=== PATIENT | female | born 1960 | race African-American/Black ===

== ENCOUNTER 2016-06-09 08:33 | Inpatient (IN) | payer OTHER ==
[2016-06-09] MEDS ORDERED: MAXIPIME 1 GM/D5W 50 ML IV SCH (09:00)
[2016-06-09] MEDS ORDERED: NS 500 ML ONE (10:09)
[2016-06-09 10:34] LABS: HEMATOCRIT 36.1 % (37.0-47.0); HEMOGLOBIN 10.8 g/dL (12.0-16.0); MCH 25.4 PG (27-31); MCHC 29.9 g/dL (33-37); MCV 84.7 FL (81-99); MPV 9.3 FL (7.4-10.4); RBC 4.26 XMIL (4.2-5.4)
[2016-06-09 10:49] LABS: INR 1.08 (0.86-1.15); PROTIME 14.3 Seconds (12.1-15.5)
[2016-06-09 10:54] LABS: CALCIUM 8.8 mg/dL (8.8-10.2); POTASSIUM 4.1 mmol/L (3.5-5.1)
[2016-06-09] MEDS: SANTYL OINT TOP SCH (11:02)
--- NOTE | 2016-06-09 12:49 | Diag Imaging Result Document ---
PROCEDURE NAME: CHEST-PORTABLE - 06/09/2016 PORTABLE AP CHEST: COMPARISON: 05/23/2015. FINDINGS: There is a left-sided PICC line on the current exam. The tip overlies the mid superior vena cava. Poor inspiratory effort. The heart is borderline mildly prominent. This is similar to the prior exam. Mild increased interstitial markings similar to the prior study. No consolidation. No pleural effusions identified. IMPRESSION: Placement of a left-sided PICC line with the tip overlying the mid superior vena cava.
[2016-06-09] MEDS: MAXIPIME 1 GM in NS 50 ML IV SCH ×2 (13:44→21:44)
[2016-06-09] MEDS ORDERED: ZOFRAN IV PRN (16:39)
[2016-06-09] MEDS ORDERED: ZYRTEC PO PRN (16:42)
[2016-06-09] MEDS ORDERED: IBUPROFEN PO PRN (16:42)
[2016-06-09] MEDS ORDERED: DIPHENHYDRAMINE CIT PO PRN (16:42)
[2016-06-09] MEDS ORDERED: MOTRIN PO PRN (17:19)
[2016-06-09] MEDS ORDERED: BENADRYL PO PRN (17:20)
[2016-06-09] MEDS: NEURONTIN PO SCH (17:40)
[2016-06-09] MEDS: GLUCOTROL PO SCH (17:40)
[2016-06-09] MEDS: FISH OIL CONCENTRATE PO SCH (17:40)
[2016-06-09] MEDS: FERROUS SULFATE PO SCH (17:40)
[2016-06-09] MEDS: DITROPAN PO SCH (21:46)
[2016-06-09] MEDS: ZOCOR PO SCH (21:47)
[2016-06-09] MEDS: LANTUS INSULIN (PARKWAY) SUBQ SCH (21:47)
[2016-06-10] MEDS: MAXIPIME 1 GM in NS 50 ML IV SCH ×3 (05:51→21:15)
[2016-06-10 06:23] LABS: HEMATOCRIT 31.8 % (37.0-47.0); HEMOGLOBIN 9.4 g/dL (12.0-16.0); MCHC 29.6 g/dL (33-37); MCV 84.6 FL (81-99); MPV 9.5 FL (7.4-10.4); RBC 3.76 XMIL (4.2-5.4)
[2016-06-10 06:43] LABS: CALCIUM 8.5 mg/dL (8.8-10.2); POTASSIUM 4.1 mmol/L (3.5-5.1)
[2016-06-10] MEDS: FISH OIL CONCENTRATE PO SCH ×3 (09:56→17:57)
[2016-06-10] MEDS: FERROUS SULFATE PO SCH ×3 (09:56→17:57)
[2016-06-10] MEDS: VITAMIN B-12 PO SCH (09:56)
[2016-06-10] MEDS: HYDROCHLOROTHIAZIDE PO SCH (09:56)
[2016-06-10] MEDS: GLUCOTROL PO SCH ×2 (09:56→17:57)
[2016-06-10] MEDS: DITROPAN PO SCH ×2 (09:57→21:15)
[2016-06-10] MEDS: ASPIRIN EC PO SCH (09:57)
[2016-06-10] MEDS: TRADJENTA PO SCH (09:57)
[2016-06-10] MEDS: NEURONTIN PO SCH ×3 (09:57→17:57)
--- NOTE | 2016-06-10 12:57 | HISTORY AND PHYSICAL ---
CHIEF COMPLAINT: Nonhealing wound, left calf. HISTORY OF PRESENT ILLNESS: This is a morbidly obese, 55-year-old female with a history of diabetes mellitus, hypertension, peripheral neuropathy, who presented as a direct admit from the wound center for an ulcer to her left calf with failed outpatient treatment. She had previously been following with Dr. Christine in the wound center. As she has not responded to antibiotics, she is being admitted for a PICC line placement and antibiotic therapy and further treatment. PAST MEDICAL HISTORY: Hypertension, diabetes mellitus, morbid obesity, chronic anemia. PAST SURGICAL HISTORY: Multiple surgeries to the left leg, left calf, . SOCIAL HISTORY: She denies alcohol, tobacco, or illicit drug use. ALLERGIES: Flagyl which causes itching. HOME MEDICATIONS: A list will be obtained. REVIEW OF SYSTEMS: A 14 point review of systems is discussed with patient with pertinent positives being persistent wound to left calf. She denies chest pain, palpitations, dizziness, syncope, shortness of breath, dyspnea on exertion, nausea, vomiting, diarrhea, constipation, black or bloody vomitus, black or bloody stools, hematuria, dysuria, frequency, urgency, fever, chills. PHYSICAL EXAMINATION: GENERAL: This is a 55-year-old female who is sitting in the bed, in no distress. VITAL SIGNS: Blood pressure is 143/90 with a heart rate of 81, respirations are 18, temperature is 98.5 degrees oral, with room air saturation of 100%. CARDIOVASCULAR: Regular rate and rhythm. S1 and S2 are appreciated. PULMONARY: Breath sounds are clear. Diminished due to body habitus with no increased work of breathing noted. GASTROINTESTINAL: Abdomen is large, soft, nontender, nondistended with bowel sounds in all 4 quadrants. EXTREMITIES: No clubbing or cyanosis. She has bilateral pedal edema. Pulses are palpable x4. Calves are nontender. NEUROLOGIC: She is alert and oriented x3. Cranial nerves 2 through 12 grossly intact. SKIN: Warm and dry with a wound noted to the left calf that is dressed, with dressing dry and intact. ASSESSMENT AND PLAN: 1. Left calf wound, failed outpatient treatment. 2. Diabetes mellitus. 3. Hypertension. 4. Chronic kidney disease. 5. Peripheral neuropathy. 6. Deep vein thrombosis prophylaxis. 7. Gastrointestinal prophylaxis. PLAN: She will be admitted to the hospital. A PICC line will be placed. She will be started on Maxipime 1 g every 8 hours. We will consult wound center for management. Dr. christine will be consulted. We will identify and continue her home medications as appropriate. For DVT prophylaxis we will use low-dose Lovenox and for GI prophylaxis, Prilosec. Further treatments pending hospital course. Dictated by MASON Ortiz for Isma Wheeler MD
[2016-06-10] MEDS: SANTYL OINT TOP SCH (15:11)
--- NOTE | 2016-06-10 16:27 | PROGRESS NOTE ---
DATE: 06/10/2016 SUBJECTIVE: The patient has no specific complaints. She denies any pain to her left calf. No fever or chills. OBJECTIVE: Vital Signs: Blood pressure is 148/65, with a heart rate of 80, respirations are 18, temperature is 97.4 degrees oral, with room air saturations of 100%. Cardiovascular: Regular rate and rhythm. S1 and S2 appreciated. Pulmonary: Breath sounds are clear although diminished due to body habitus. Chest rises and falls symmetrically with respiration. No increased work of breathing noted. Gastrointestinal: Abdomen is large, soft, nontender, nondistended, with bowel sounds in all 4 quadrants. Extremities: No clubbing or cyanosis. She does have some trace pedal edema. Dressing is dry and intact to her left calf. Pulses are palpable x4. Calves are nontender. DIAGNOSTICS: WBC is 6.4, with hemoglobin 9.4, hematocrit 31.8, and platelets of 254,000. Sodium is 141, potassium 4.1, BUN 19, creatinine 1.3, with glucose of 167. PROBLEM LIST: 1. Left calf wound, failed outpatient treatment. 2. Diabetes mellitus. 3. Hypertension. 4. Chronic kidney disease. 5. Peripheral neuropathy. 6. Deep venous thrombosis prophylaxis. 7. Gastrointestinal prophylaxis. 8. Dressing changes. Continue per Wound Care. 9. We will continue with IV Maxipime. Today is day #2, with Lovenox for deep venous thrombosis prophylaxis, and Prilosec for gastrointestinal prophylaxis. Dictated by MASON Ortiz for Isma Wheeler MD
[2016-06-10] MEDS: ZOCOR PO SCH (21:15)
[2016-06-10] MEDS: LANTUS INSULIN (PARKWAY) SUBQ SCH (21:15)
[2016-06-11] MEDS: MAXIPIME 1 GM in NS 50 ML IV SCH ×3 (06:04→21:22)
[2016-06-11] MEDS: PRILOSEC PO SCH (06:36)
--- NOTE | 2016-06-11 07:53 | PROGRESS NOTE ---
DATE: 06/11/2016 SUBJECTIVE: The patient states that she is feeling better today. She does have less edema in her left calf wound. She denies any pain, any fever or chills. OBJECTIVE: Vital Signs: Blood pressure is 115/53. Heart rate of 79, respirations are 18, temperature is 98.1 degrees oral with a room air saturation of 100%. Cardiovascular: Regular rate and rhythm. S1 and S2 appreciated. Pulmonary: Breath sounds are clear, although diminished due to body habitus. Chest rises and falls symmetrically with respiration. No increased work of breathing noted. Gastrointestinal: Abdomen is soft, nontender, nondistended with bowel sounds in all 4 quadrants. Extremities: No clubbing or cyanosis. She does have decreased lower extremity edema. Dressing is dry and intact to her left calf. Pulses are palpable x4. She states her calves are nontender. Neurologic: She is alert and oriented x3. DIAGNOSTICS: She has no new labs today. PROBLEM LIST: 1. Left calf wound failed outpatient treatment. 2. Diabetes mellitus. 3. Hypertension. 4. Chronic kidney disease. 5. Peripheral neuropathy. 6. Deep vein thrombosis prophylaxis. 7. Gastrointestinal prophylaxis. PLAN: We will continue with the current regimen, continue dressing changes as before. We will set up home IV antibiotics of Maxipime 1 g every 8 hours for 2 weeks. The plan is to discharge in the morning. Dictated by MASON Ortiz for Tom Teague MD pt examined, agree with above, plan for dc in am [facility]
[2016-06-11] MEDS: NEURONTIN PO SCH ×3 (09:34→17:10)
[2016-06-11] MEDS: VITAMIN B-12 PO SCH (09:34)
[2016-06-11] MEDS: ASPIRIN EC PO SCH (09:34)
[2016-06-11] MEDS: GLUCOTROL PO SCH ×2 (09:34→17:09)
[2016-06-11] MEDS: FISH OIL CONCENTRATE PO SCH ×3 (09:34→17:10)
[2016-06-11] MEDS: DITROPAN PO SCH ×2 (09:35→21:22)
[2016-06-11] MEDS: TRADJENTA PO SCH (09:35)
[2016-06-11] MEDS: FERROUS SULFATE PO SCH ×3 (09:35→17:10)
[2016-06-11] MEDS: HYDROCHLOROTHIAZIDE PO SCH (09:35)
[2016-06-11] MEDS: LOVENOX SUBQ SCH (09:37)
[2016-06-11] MEDS: SANTYL OINT TOP SCH (09:37)
--- NOTE | 2016-06-11 10:01 | CONSULTATION ---
DATE OF CONSULTATION: 06/11/2016 CHIEF COMPLAINT: Chronic ulcer of left medial calf. HISTORY OF PRESENT ILLNESS: This is a 55-year-old, obese, black female known to me from the Wound Center. She has had a chronic wound of the left calf for years. She has had former attempts at excision of the lymphedematous swollen leg. She has almost completely healed in the past. She is poorly compliant as an outpatient. She is admitted now because of the wound culture being refractory to all p.o. medications. We felt also that she would do better if we hospitalized her and kept her leg up to reduce swelling. PAST MEDICAL HISTORY: Her other medical problems include noninsulin-dependent diabetes, morbid obesity, chronic anemia, hypertension. PAST SURGICAL HISTORY: Includes a . SOCIAL HISTORY: She denies alcohol, tobacco usage. ALLERGIES: She reports an allergy to Flagyl. MEDICATIONS: She has been on numerous p.o. antibiotics at home. REVIEW OF SYSTEMS: As noted above. PHYSICAL EXAMINATION: Vital signs: Temp 98.1 degrees, heart rate 79, respiratory rate 18, blood pressure 115/53. Lungs: Bilateral breath sounds. Heart: Regular rate and rhythm. Abdomen: Soft. Extremities: She has a very swollen and edematous left calf with the ulceration medial posteriorly. It has some discoloration to the exudate. There are pedal pulses. Neurologic: She is awake and alert. LABS: White count on admission 8,900, hemoglobin 10.8. BUN 19, creatinine 1.3. ASSESSMENT: 1. Chronic wound. 2. Medical noncompliance. PLAN: Admission for IV antibiotic therapy. Her recent cultures grew out Enterobacter cloacae sensitive to cefepime. Because of her failure to be compliant as an outpatient and failure of the wound to improve as an outpatient is why admission was recommended and IV antibiotic therapy.
[2016-06-11] MEDS ORDERED: LANTUS INSULIN (PARKWAY) SUBQ SCH (19:25)
[2016-06-11] MEDS: ZOCOR PO SCH (21:22)
[2016-06-12] MEDS: PRILOSEC PO SCH ×2 (05:58→06:18)
[2016-06-12] MEDS: MAXIPIME 1 GM in NS 50 ML IV SCH ×2 (05:58→13:06)
[2016-06-12 07:18] VITALS: BP 142/76
[2016-06-12] MEDS: GLUCOTROL PO SCH (08:51)
[2016-06-12] MEDS: ASPIRIN EC PO SCH (08:52)
[2016-06-12] MEDS: VITAMIN B-12 PO SCH (08:52)
[2016-06-12] MEDS: TRADJENTA PO SCH (08:52)
[2016-06-12] MEDS: DITROPAN PO SCH (08:52)
[2016-06-12] MEDS: NEURONTIN PO SCH ×2 (08:52→12:25)
[2016-06-12] MEDS: SANTYL OINT TOP SCH (08:53)
[2016-06-12] MEDS: HYDROCHLOROTHIAZIDE PO SCH (08:53)
[2016-06-12] MEDS: LOVENOX SUBQ SCH (08:53)
[2016-06-12] MEDS: FISH OIL CONCENTRATE PO SCH ×2 (08:53→12:25)
[2016-06-12] MEDS: FERROUS SULFATE PO SCH ×2 (08:57→12:29)
--- NOTE | 2016-06-12 15:35 | DISCHARGE SUMMARY ---
ADMISSION DATE: 06/09/2016 DISCHARGE DATE: 06/12/2016 DISCHARGE DIAGNOSES: 1. Chronic wound of the left lower extremity, failing outpatient therapy. 2. Diabetes. 3. Hypertension. Controlled. 4. Chronic renal failure. 5. Peripheral neuropathy. ADMISSION DIAGNOSES: 1. Left calf wound. 2. Diabetes mellitus. 3. Hypertension, 4. Chronic kidney disease. HOSPITAL COURSE: Patient admitted per Dr. Wheeler, PICC line was placed. She was started on cefepime. Dr. Carter was consulted. I do not think Dr. Correa was consulted, but Dr. Carter will be following her. He recommended IV antibiotics. She had recent cultures that grew out Enterobacter cloacae sensitive to cefepime. She will be discharged on IV antibiotics presumably for another week to at least 10 days, I would think. She has had some episodes with periodic hypoglycemia. Blood sugars have been stable. We decreased her Lantus to 20 units and she seems to be overall controlled. DISCHARGE MEDICATIONS: Ferrous sulfate 325 p.o. t.i.d., omega 3 fatty acids 1 t.i.d., simvastatin 40 daily, vitamin B12 1 g daily, aspirin 81 daily. Lantus, I am going to adjust down to 30 units at bedtime. Zyrtec 10 daily, hydrochlorothiazide 25 daily, gabapentin 600 t.i.d., glipizide 10 b.i.d., Ditropan 5 b.i.d., Tradjenta 5 daily and then the cefepime will be 1 g q.12 for another 10 days. DISCHARGE CONDITION: Stable. FOLLOWUP: She will follow up with Dr. Carter next week to examine her wound. TIME SPENT: A 32 minute discharge.
== END 2016-06-12 14:08 | disposition home health service (06) | DRG 638 ==
LOC: P.MEDSURG 08:33
PROVIDERS: ADMIT Internal Medicine; ATTEND Internal Medicine
PROC: 02HV33Z Insertion of Infusion Device into Superior Vena Cava, Percutaneous Approach (ICD-10-PCS; principal; 2016-06-09)
DX: E11.622 Type 2 diabetes mellitus with other skin ulcer (principal); L97.229 Non-pressure chronic ulcer of left calf with unspecified severity; E11.22 Type 2 diabetes mellitus with diabetic chronic kidney disease; E11.40 Type 2 diabetes mellitus with diabetic neuropathy, unspecified; Z68.44 Body mass index [BMI] 60.0-69.9, adult; E66.01 Morbid (severe) obesity due to excess calories; D64.9 Anemia, unspecified; I12.9 Hypertensive chronic kidney disease with stage 1 through stage 4 chronic kidney disease, or unspecified chronic kidney disease; N18.9 Chronic kidney disease, unspecified; Z91.19 Patient's noncompliance with other medical treatment and regimen; Z79.4 Long term (current) use of insulin; Z79.82 Long term (current) use of aspirin; Z79.899 Other long term (current) drug therapy
CPT/HCPCS: 36569; 71010; 80048; 82948; 85027; 85610; J0692; J1650; J1815; J2405; J7050

== ENCOUNTER 2018-07-07 13:02 | Inpatient (IN) ==
[2018-07-07] MEDS ORDERED: ZOSYN 3.375 GM in NS 50 ML IV SCH (16:00)
[2018-07-07] MEDS: NEURONTIN PO SCH (17:40)
[2018-07-07] MEDS: FERROUS SULFATE PO SCH (17:40)
[2018-07-07] MEDS: GLUCOTROL PO SCH (17:40)
[2018-07-07] MEDS: FISH OIL CONCENTRATE PO SCH (17:40)
--- NOTE | 2018-07-07 18:01 | HISTORY AND PHYSICAL ---
CHIEF COMPLAINT: Infected left leg ulcer with lymphedema. HISTORY: This is a 58-year-old obese female with apparently congenital lymphedema in the left leg. She has had a couple attempts at volume reduction of her left leg tissue, but has not been able to heal the wound completely. She is followed in the [facility] and intermittently has infections. She has another one that is growing a gram-negative roxi. We treated her as an outpatient with Levaquin but this has not responded adequately, so she is admitted for IV antibiotic therapy. MEDICAL HISTORY: Other medical problems include insulin-dependent diabetes, hypertension, hyperlipidemia, sleep apnea, anemia. SURGICAL HISTORY: Previous surgery includes a and then the soft tissue resection in the left leg done in the past. FAMILY HISTORY: Noncontributory. SOCIAL HISTORY: She is a nonsmoker. She lives at home. Denies substance abuse. REVIEW OF SYSTEMS: Negative in every sub system. PHYSICAL EXAMINATION: VITAL SIGNS: She is afebrile. Heart rate 90, blood pressure is 150/90. NECK: No cervical adenopathy. LUNGS: Bilateral breath sounds. HEART: Regular rate and rhythm. EXTREMITIES: She is massively obese. She has a very large left leg consistent with chronic lymphedema. The ulcerations are on the medial aspect. There is some odor. Is weeping fairly significantly. PLAN: IV Zosyn to which she has responded before. We will also watch her sugars in the hospital. cc: MD Connie Sanchez MD
[2018-07-07] MEDS ORDERED: TYLENOL PO PRN (18:21)
[2018-07-07] MEDS ORDERED: ZOFRAN IV PRN (18:21)
--- NOTE | 2018-07-07 18:43 | Diag Imaging Result Doc PS360 ---
EXAM: CHEST-PORTABLE 07/07/2018 HISTORY: dyspnea TECHNIQUE: AP portable at 1831 COMMENT: There is cardiomegaly. There is increased opacity over the lower lung palmer compared to 03/13/2017. The heart size appears larger. IMPRESSION: Worsening cardiomegaly and pulmonary edema. Electronically signed by Javier Munoz 07/07/2018 6:40 PM
[2018-07-07 18:56] LABS: BASO# 0.04 X1000 (0.0-0.2); BASO% 0.6 % (0.0-0.8); EOS# 0.15 X1000 (0.0-0.7); EOS% 2.1 % (0.0-10.0); HEMATOCRIT 33.7 % (37.0-47.0); HEMOGLOBIN 10.3 g/dL (12.0-16.0); IMM GRAN# 0.02 X1000 (0.0-0.04); IMM GRAN% 0.3 % (0.0-0.5); LYMPH# 1.45 X1000 (1.2-3.4); LYMPH% 20.4 % (20.5-51.1); MCH 25.2 PG (27-31); MCHC 30.6 g/dL (33-37); MCV 82.4 FL (81-99); MONO# 0.55 X1000 (0.11-0.59); MONO% 7.7 % (1.7-9.3); MPV 9.6 FL (7.4-10.4); NEUT# 4.91 X1000 (1.4-6.5); NEUT% 68.9 % (42.2-75.2); PLT 211 X1000 (130-400); RBC 4.09 XMIL (4.2-5.4); RDW 16.9 % (11.5-14.5); RETIC% 1.73 % (0.8-2.1); RETIC-HE 25.4 PG (28.2-36.6); WBC 7.12 X1000 (4.8-10.8)
[2018-07-07 19:37] LABS: IRON SATURATION 12 %; TIBC 215 ug/dL; TOTAL IRON 26 ug/dL (49-151); UNBOUND IRON 189 ug/dL (112-346)
[2018-07-07 19:51] LABS: HEMOGLOBIN A1C 6.5 % (4.8-6.0)
[2018-07-07 20:05] LABS: URINE SOURCE CATH
[2018-07-07 20:19] LABS: BILIRUBIN URINE NEGATIVE (NEGATIVE); BLOOD URINE TRACE (NEGATIVE); COLOR YELLOW; GLUCOSE URINE NEGATIVE (NEGATIVE); KETONE URINE NEGATIVE (NEGATIVE); LEUKOCYTES URINE NEGATIVE (NEGATIVE); NITRITE URINE NEGATIVE (NEGATIVE); PH URINE 6.5; PROTEIN URINE 200 mg/dL (NEGATIVE); SP GRAVITY URINE 1.019; TURBIDITY URINE CLEAR (CLEAR); UROBILINOGEN URINE NORMAL (NORMAL)
[2018-07-07 20:20] LABS: FERRITIN 242 ng/mL (13-150)
[2018-07-07 20:22] LABS: UR EPITHELIAL CELLS <10 /HPF (<10); URINE BACTERIA NEGATIVE /HPF; URINE RBC <10 /HPF (<10); URINE WBC <10 /HPF (<10)
--- NOTE | 2018-07-07 20:32 | CONSULTATION ---
DATE OF CONSULTATION: 07/07/2018 REQUESTING PHYSICIAN: Dr. Carter. REASON FOR CONSULTATION: Management of diabetes mellitus type 2. HISTORY OF PRESENT ILLNESS: Ms. Montanez is a 58-year-old female with a history of morbid obesity, diabetes mellitus type 2 on insulin, anemia of chronic disease and a nonhealing left leg ulceration who was directly admitted due to an infection involving the left leg and ulceration on the left leg. The patient states that she has had a chronic ulceration on her left calf that has not been healing well for the last two years. The patient reports that the home health nurse came out to her home and noticed that the wound looked worse. There was a foul odor with purulent discharge soaking the sheets. The patient reports that she had her wound VAC removed last week and was given a seven-day course of antibiotic. However, there was no improvement in the appearance of her leg. The patient denies having any fever, chills or change in appetite. The patient states that she currently lives at home with her son and has home health come out to her home. The patient reports that she has been diabetic since 1988. She states that her blood sugars range anywhere from 98 to the 120s. The patient is on Lantus 30 units subcutaneous at bedtime. Her most recent hemoglobin A1c is 6.5. The patient denies having any chest pain, headache, dizziness or recent syncopal episodes. The patient also has severe chronic lower extremity lymphedema. PAST MEDICAL HISTORY: 1. Diabetes mellitus type 2. 2. Morbid obesity. 3. Anemia of chronic disease. 4. Hypertension. 5. Chronic nonhealing ulceration to the left calf. 6. Hyperlipidemia. 7. Urinary incontinence. 8. Diabetic neuropathy. 9. Chronic leg lymphedema 10. Chronic kidney disease PAST SURGICAL HISTORY: 1. Multiple surgeries to the left leg. 2. . SOCIAL HISTORY: The patient lives at home with her son. She denies any tobacco, alcohol or illicit drug use. ALLERGIES: Flagyl, which causes hives and itching. HOME MEDICATIONS: The medication reconciliation is pending. REVIEW OF SYSTEMS: A 12-point review of systems has been performed. Please refer to the History of Present Illness for pertinent positives and negatives. PHYSICAL EXAMINATION: Vital Signs: Temperature 98, blood pressure 117/85, heart rate 87, respirations 18. O2 sats 100% on room air. General: This is a morbidly obese female lying in bed in no acute distress. HEENT: Head normocephalic, atraumatic. Eyes: Conjunctiva clear, EOMI, PERRLA. Neck: Supple no JVD. No lymphadenopathy. Lungs: Equal air entry bilaterally. No wheezing. No rales. No rhonchi. Heart: S1, S2 normal. Regular rate and rhythm. Abdomen: Positive bowel sounds. Soft, obese, nontender. Extremities: The patient has severe chronic left lower extremity lymphedema with an open ulceration with white malodorous drainage. Neurologic: The patient is alert and oriented x 4. No focal neurologic deficits noted. LABS: White blood cell count 7.1, hemoglobin 10, hematocrit 33, platelets 211,000. Hemoglobin A1c 6.5, iron 26 proBNP 6200, folate 16.4. Chest x-ray shows cardiomegaly and pulmonary edema. ASSESSMENT AND PLAN: 1. Infected left leg ulceration. The patient has been started on antibiotics. Blood culture and wound cultures have been obtained. Management as per the general surgeon. 2. Congestive heart failure exacerbation. The patient's chest x-ray shows pulmonary edema. Also, her proBNP is elevated. We will start the patient on diuretic therapy. We will also order an echocardiogram to determine the EF and monitor the patient's daily weights closely. 3. Acute kidney injury on chronic kidney disease. Will order urine studies and a renal ultrasound. 4. Diabetes mellitus type 2. We will start the patient on her outpatient insulin regimen. We will also add sliding scale coverage. The patient will be placed on a diabetic diet. 5. Morbid obesity. Aware. 6. Diabetic neuropathy. Continue on Neurontin. 7. Hypertension. Hold the HCTZ. Continue on the current antihypertensive regimen. 8. Iron deficiency anemia. Monitor the H/H closely. 9. DVT prophylaxis. Continue on heparin. cc: MD CASSANDRA Borden
[2018-07-07] MEDS ORDERED: HUMALOG SUBQ SCH (21:00)
[2018-07-07] MEDS: ZOSYN 2.25 GM in NS 50 ML IV SCH (21:19)
[2018-07-07] MEDS: ZOCOR PO SCH ×2 (21:20→21:32)
[2018-07-07] MEDS: HUMULIN R SUBQ SCH (21:20)
[2018-07-07] MEDS: HEPARIN SUBQ SCH (21:21)
[2018-07-07] MEDS: DITROPAN PO SCH ×2 (21:21→21:33)
[2018-07-07] MEDS: LASIX IV SCH (21:22)
[2018-07-07] MEDS: BASAGLAR SUBQ SCH (21:22)
[2018-07-07 21:30] LABS: ALB/GLOB RATIO 0.9; ALBUMIN 3.5 g/dL (3.5-5.0); CALCIUM 8.7 mg/dL (8.8-10.2); CREATININE 2.2 mg/dL (0.5-0.9); POTASSIUM 5.3 mmol/L (3.5-5.1); TOTAL BILIRUBIN 0.57 mg/dL (0.20-1.00); TOTAL PROTEIN 7.6 g/dL (6.3-8.3)
[2018-07-08] MEDS: ZOSYN 2.25 GM in NS 50 ML IV SCH ×3 (02:06→17:29)
[2018-07-08] MEDS: NORCO-5 PO PRN ×2 (02:12→13:33)
[2018-07-08] MEDS: HUMULIN R SUBQ SCH (06:07)
[2018-07-08] MEDS: HEPARIN SUBQ SCH ×3 (06:09→21:55)
[2018-07-08] MEDS ORDERED: ZOSYN ONE (06:10)
[2018-07-08 07:01] LABS: UR CREAT RANDOM 34.4 mg/dL (11-20); UR PROT RANDOM 31.1 mg/dL
[2018-07-08 07:16] LABS: BASO# 0.04 X1000 (0.0-0.2); BASO% 0.8 % (0.0-0.8); EOS# 0.16 X1000 (0.0-0.7); HEMATOCRIT 31.8 % (37.0-47.0); HEMOGLOBIN 9.9 g/dL (12.0-16.0); LYMPH# 1.09 X1000 (1.2-3.4); LYMPH% 20.5 % (20.5-51.1); MCH 25.4 PG (27-31); MCHC 31.1 g/dL (33-37); MCV 81.5 FL (81-99); MONO% 9.4 % (1.7-9.3); MPV 9.6 FL (7.4-10.4); NEUT# 3.53 X1000 (1.4-6.5); NEUT% 66.3 % (42.2-75.2); PLT 215 X1000 (130-400); RDW 16.5 % (11.5-14.5); WBC 5.32 X1000 (4.8-10.8)
[2018-07-08 07:51] LABS: CALCIUM 8.3 mg/dL (8.8-10.2); CREATININE 1.9 mg/dL (0.5-0.9); POTASSIUM 4.5 mmol/L (3.5-5.1)
[2018-07-08] MEDS ORDERED: VITAMIN D PO SCH (09:00)
[2018-07-08] MEDS ORDERED: HYDROCHLOROTHIAZIDE PO SCH (09:00)
[2018-07-08] MEDS ORDERED: PATIENT'S OWN MED PO SCH (09:00)
[2018-07-08] MEDS ORDERED: TRADJENTA PO SCH (09:00)
[2018-07-08] MEDS ORDERED: ZOSYN 2.25 GM in NS 50 ML IV SCH (10:00)
[2018-07-08] MEDS: GLUCOTROL PO SCH (10:17)
[2018-07-08] MEDS: FERROUS SULFATE PO SCH ×3 (10:17→17:28)
[2018-07-08] MEDS: FISH OIL CONCENTRATE PO SCH ×3 (10:17→17:28)
[2018-07-08] MEDS: ASPIRIN EC PO SCH (10:17)
[2018-07-08] MEDS: LASIX IV SCH ×2 (10:19→21:55)
[2018-07-08] MEDS: NEURONTIN PO SCH ×3 (10:19→17:28)
[2018-07-08] MEDS: DITROPAN PO SCH ×2 (10:19→21:55)
[2018-07-08] MEDS: ZYRTEC PO SCH (10:19)
--- NOTE | 2018-07-08 10:45 | PROGRESS NOTE ---
DATE: 07/08/2018 SUBJECTIVE: This morning, Ms. Montanez refers to be doing fairly okay. Denies any complaint, except that she said the left leg exudate smells awfully. OBJECTIVE: Vital signs: Blood pressure is 158/101, pulse is 93, respiration is 24, temperature is 97.6 degrees. On general exam, Ms. Montanez is a 58-year-old morbidly obese female. She is in bed, not in any cardiopulmonary distress. BMI is 71.2. Mucosa is pink and moist. Anicteric. Acyanotic. Neck is supple. Chest: Good air entry bilateral. There were no crepitations, no rhonchi. Cardiovascular: Regular rate and rhythm. Abdomen: Soft, distended, but nontender. Bowel sounds present. Extremities: The left lower extremity is looks a little bit more swollen than the right. There is a dressing bandage over the ulceration. There is some smell to it. The distal leg to the foot on the left has hyperpigmentation consistent of chronic changes. LABORATORY DATA: Has been reviewed. Hemoglobin is 9.9. Chemistry has also been reviewed. MEDICATION: The patient's current medications have been reviewed. MICROBIOLOGICAL DATA: So far, the left leg culture is showing gram-negative rods present. The patient is currently on Zosyn. ASSESSMENT: 1. Infected left leg ulceration. Culture is showing gram-negative rods. The patient is currently on antibiotics. 2. Morbid obesity with bilateral lymphedema. 3. Diabetes mellitus with presenting A1c of 6.5. 4. Normocytic anemia with underlying iron deficiency and chronic illness physiology. We will continue oral iron replacement. 5. Vitamin D deficiency. We will replace this as well. cc: Damon Bishop MD
[2018-07-08] MEDS: HUMALOG SUBQ SCH ×5 (10:55→22:28)
--- NOTE | 2018-07-08 11:44 | Diag Imaging Result Doc PS360 ---
EXAM: CHEST-PORTABLE 07/08/2018 HISTORY: pulmonary edema TECHNIQUE: AP portable at 1131 COMMENT: There is cardiomegaly. Compared to the previous study of 07/07/2018 the opacity over the lung bases has improved. IMPRESSION: Improved pulmonary edema. Electronically signed by Javier Munoz 07/08/2018 11:41 AM
--- NOTE | 2018-07-08 12:30 | GENERAL SURGERY PROGRESS NOTE ---
DATE: 07/08/2018 Judy has already had her bandage changed. She is growing E coli in her wound, sensitive to Zosyn. This should improve with the appropriate antibiotic therapy. We will continue with the IV antibiotics. cc: MD Damon Sanchez MD
[2018-07-08] MEDS ORDERED: CALMOSEPTINE OINTMENT TOP PRN (18:03)
[2018-07-08] MEDS: ZOCOR PO SCH (21:55)
[2018-07-08] MEDS: BASAGLAR SUBQ SCH (21:56)
--- NOTE | 2018-07-08 23:01 | ECHO REPORT ---
ORDER DATE: 07/08/2018 SUMMARY: 1. Technically difficult study due to limited acoustic window quality. Intravenous echocontrast agent was utilized to enhance endocardial definition. 2. The aortic valve is trileaflet and opens normally on 2-dimensional images. Peak gradient across the aortic valve is 12 mmHg. Mitral and tricuspid valves are without evidence of structural abnormality. The pulmonic valve is not well imaged. There is mild mitral regurgitation, moderate tricuspid regurgitation, and mild pulmonic insufficiency. The estimated systolic PA pressure by Doppler is 80 to 85 mmHg, suggesting severe pulmonary hypertension. The aortic root is normal in size. 3. Borderline left ventricular enlargement is demonstrated. Estimated left ventricular ejection fraction is approximately 25% in the setting of global hypokinesis. The left atrium is mildly enlarged. The right atrium and right ventricle are grossly normal in size. 4. No pericardial effusion. 5. Appearance of the inferior vena cava suggests elevated central venous pressure. cc: MD Connie Madrid MD Raphael K. Quansah, MD
[2018-07-09] MEDS: ZOSYN 2.25 GM in NS 50 ML IV SCH ×3 (01:27→18:13)
[2018-07-09] MEDS: HEPARIN SUBQ SCH ×3 (06:33→22:43)
[2018-07-09 07:04] LABS: BASO# 0.04 X1000 (0.0-0.2); BASO% 0.7 % (0.0-0.8); EOS# 0.22 X1000 (0.0-0.7); EOS% 3.7 % (0.0-10.0); HEMATOCRIT 33.2 % (37.0-47.0); HEMOGLOBIN 10.5 g/dL (12.0-16.0); LYMPH# 1.57 X1000 (1.2-3.4); LYMPH% 26.7 % (20.5-51.1); MCH 25.5 PG (27-31); MCHC 31.6 g/dL (33-37); MCV 80.6 FL (81-99); MONO# 0.57 X1000 (0.11-0.59); MONO% 9.7 % (1.7-9.3); MPV 9.8 FL (7.4-10.4); NEUT# 3.48 X1000 (1.4-6.5); NEUT% 59.2 % (42.2-75.2); PLT 220 X1000 (130-400); RBC 4.12 XMIL (4.2-5.4); RDW 16.4 % (11.5-14.5); WBC 5.88 X1000 (4.8-10.8)
[2018-07-09] MEDS: HUMALOG SUBQ SCH ×7 (07:18→22:44)
[2018-07-09 07:31] LABS: CALCIUM 8.6 mg/dL (8.8-10.2); CREATININE 2.2 mg/dL (0.5-0.9); POTASSIUM 4.1 mmol/L (3.5-5.1)
[2018-07-09] MEDS: ASPIRIN EC PO SCH (09:38)
[2018-07-09] MEDS: FERROUS SULFATE PO SCH ×3 (09:38→16:24)
[2018-07-09] MEDS: ZYRTEC PO SCH (09:38)
[2018-07-09] MEDS: DITROPAN PO SCH ×2 (09:38→22:43)
[2018-07-09] MEDS: FISH OIL CONCENTRATE PO SCH ×3 (09:38→16:24)
[2018-07-09] MEDS: NEURONTIN PO SCH ×3 (09:38→16:24)
--- NOTE | 2018-07-09 12:25 | PROGRESS NOTE ---
DATE: 07/09/2018 SUBJECTIVE: This morning, Ms. Montanez refers to be doing fairly okay. Denies any acute complaints. OBJECTIVE: Vital signs: Blood pressure is 124/72, pulse is 77, respirations 22, temperature 98.1 degrees. General: Ms. Montanez is a 58-year-old morbidly obese female. She was in bed in no distress. Mucosa is pink and moist. Anicteric. Acyanotic. Neck: Supple. Chest: Good air entry bilaterally. No crepitations. No rhonchi. Cardiovascular: Regular rate and rhythm. Abdomen: Soft, distended, but nontender. Extremities: Both lower extremities have chronic lymphedema changes. The left looks slightly more swollen. There is a dressing over the medial to posterior ulceration. It does not have that much of a smell like yesterday. Neurologic: The patient is awake, alert, and oriented. LABORATORY DATA: Has been reviewed. WBC is 5.88, hemoglobin is 10.5, platelet count of 220,000. Chemistry is also reviewed. Creatinine went up to 2.2, that is probably around her baseline. The culture from the foot is still showing gram-negative roxi. ASSESSMENT: 1. Gram-negative roxi infected leg wound. We will continue with the current antibiotics. 2. Morbid obesity with bilateral lymphedema. 3. Diabetes mellitus with presenting A1c of 6.5. For now, we will continue management with insulin. 4. Normocytic anemia with underlying iron deficiency and chronic illness. 5. Vitamin D deficiency. We will continue to replace. 6. Chronic kidney disease, stage IIIB. Creatinine is fairly around the baseline. I do not see any remarkable fluid overload, so I have discontinued the current IV diuretics. 7. Congestive heart failure with ejection fraction of 25% in the setting of global hypokinesis noted. I will continue to address the patient's blood pressure issues. We will start her on low-dose hydralazine with carvedilol. cc: Damon Bishop MD
[2018-07-09] MEDS: APRESOLINE PO SCH ×2 (12:55→16:24)
[2018-07-09] MEDS: ISORDIL PO SCH ×2 (13:19→18:12)
--- NOTE | 2018-07-09 19:31 | GENERAL SURGERY PROGRESS NOTE ---
DATE: 07/07/2018 Judy is continuing with her antibiotic. Her culture has grown E coli in the past. Current culture is pending. Her wound should improve with antibiotic therapy. [facility] will cover in my absence. cc: MD Damon Sanchez MD
[2018-07-09] MEDS: COREG PO SCH (22:43)
[2018-07-09] MEDS: ZOCOR PO SCH (22:43)
[2018-07-09] MEDS: LASIX PO SCH (22:43)
[2018-07-09] MEDS: BASAGLAR SUBQ SCH (22:44)
[2018-07-10] MEDS: ZOSYN 2.25 GM in NS 50 ML IV SCH ×3 (03:01→17:31)
[2018-07-10] MEDS: HEPARIN SUBQ SCH ×4 (05:07→22:40)
[2018-07-10] MEDS: HUMALOG SUBQ SCH ×7 (07:00→22:42)
[2018-07-10 07:29] LABS: CALCIUM 8.6 mg/dL (8.8-10.2); POTASSIUM 4.5 mmol/L (3.5-5.1)
--- NOTE | 2018-07-10 09:38 | PROGRESS NOTE ---
DATE: 07/10/2018 SUBJECTIVE: Ms. Montanez is morbidly obese black female who has an infection involving her left leg that appears to have Escherichia coli within it. She is being treated with IV Zosyn and wound care. We will continue that treatment for her calf wound. Our hospitalists are helping with her diabetes control. cc: MD Damon Bruce MD
[2018-07-10] MEDS: APRESOLINE PO SCH ×3 (10:05→17:30)
[2018-07-10] MEDS: FISH OIL CONCENTRATE PO SCH ×3 (10:05→17:30)
[2018-07-10] MEDS: COREG PO SCH ×2 (10:06→22:40)
[2018-07-10] MEDS: NEURONTIN PO SCH ×3 (10:06→17:30)
[2018-07-10] MEDS: LASIX PO SCH ×2 (10:06→22:39)
[2018-07-10] MEDS: ZYRTEC PO SCH (10:07)
[2018-07-10] MEDS: ISORDIL PO SCH ×3 (10:07→17:30)
[2018-07-10] MEDS: DITROPAN PO SCH ×2 (10:09→22:39)
[2018-07-10] MEDS: FERROUS SULFATE PO SCH ×3 (10:09→17:31)
[2018-07-10] MEDS: ASPIRIN EC PO SCH (10:09)
--- NOTE | 2018-07-10 14:41 | PROGRESS NOTE ---
DATE: 07/10/2018 SUBJECTIVE: Today Ms. Montanez refers to be doing okay. Denied any complaints. Per the nursing staff, night was uneventful. OBJECTIVE: General: Ms. Montanez is a 58-year-old, morbidly obese female. She is in bed in no distress. HEENT: Mucosa is pink and moist. Anicteric. Acyanotic. Neck: Supple. Chest: Clear to auscultation. No crepitations. No rhonchi. Cardiovascular: Regular rate and rhythm. No murmurs, no rubs, no gallops. GI: Abdomen is soft and nontender. Bowel sounds present. Extremities: Both lower extremities have chronic lymphedema changes. The left is slightly more swollen. There is a sterile dressing over the mid to distal leg. PIG FARMER: Patient is awake and alert and oriented. LABORATORY DATA: Chemistry is reviewed. Creatinine is down to 2.0. CURRENT MEDICATIONS: Have all been reviewed. CULTURES: Wound culture has shown Alcaligenes species which seems to be sensitive to second and third generations of cephalosporin and also Zosyn, which is resistant to cefazolin and levofloxacin. ASSESSMENT: 1. 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 The patient is currently on Zosyn. We will switch her to cefdinir which is a third-generation cephalosporin once patient is ready for discharge home. 2. Morbid obesity with bilateral lymphedema. 3. Diabetes mellitus with presenting A1c of 6.5. We will continue with insulin management. 4. Normocytic anemia with underlying iron deficiency and anemia of chronic illness. 5. Vitamin D deficiency. We will continue to replace. 6. Chronic kidney disease stage IIIB noted. 7. Congestive heart failure with ejection fraction of 25% in the setting of global hypokinesis. The patient is currently euvolemic. We will continue with her beta javier, oral diuretics, and we have started her on a combination of hydralazine and Isordil since we cannot use Sumeet because of the renal disease. 8. Hypertension is controlled. PLAN: So from a medical standpoint, we think Ms. Montanez is relatively stable and can be discharged whenever it is okay with Surgery. She will be discharged on cefdinir as an oral antibiotic, and continue with wound care. The patient will also need to follow up with Cardiology for outpatient evaluation of her cardiac status to rule out any coronary artery disease since she has a low ( 25%) ejection fraction. cc: Damon Bishop MD MTDD
[2018-07-10] MEDS: NORCO-5 PO PRN (17:52)
[2018-07-10] MEDS: ZOCOR PO SCH (22:40)
[2018-07-10] MEDS: BASAGLAR SUBQ SCH (22:40)
[2018-07-11] MEDS: ZOSYN 2.25 GM in NS 50 ML IV SCH ×3 (03:06→18:03)
[2018-07-11] MEDS: HEPARIN SUBQ SCH ×3 (05:52→20:59)
[2018-07-11] MEDS: HUMALOG SUBQ SCH ×7 (06:53→22:10)
[2018-07-11] MEDS: ASPIRIN EC PO SCH (09:56)
[2018-07-11] MEDS: COREG PO SCH ×2 (09:56→20:59)
[2018-07-11] MEDS: DITROPAN PO SCH ×2 (09:56→20:59)
[2018-07-11] MEDS: FISH OIL CONCENTRATE PO SCH ×3 (09:56→16:20)
[2018-07-11] MEDS: ISORDIL PO SCH ×3 (09:57→16:21)
[2018-07-11] MEDS: FERROUS SULFATE PO SCH ×3 (09:57→16:20)
[2018-07-11] MEDS: LASIX PO SCH ×2 (09:57→20:59)
[2018-07-11] MEDS: NEURONTIN PO SCH ×3 (09:57→16:21)
[2018-07-11] MEDS: ZYRTEC PO SCH (10:03)
[2018-07-11] MEDS: APRESOLINE PO SCH ×3 (10:03→16:23)
--- NOTE | 2018-07-11 13:36 | PROGRESS NOTE ---
DATE: 07/11/2018 SUBJECTIVE: This morning, Ms. Montanez referred to be doing okay. No new complaints. OBJECTIVE: Vital Signs: Stable. General Examination: Ms. Montanez is a 58-year-old, female, morbidly obese with a BMI of 71.9. She was in bed, in no distress. HEENT: Mucosa is pink and moist. Anicteric. Acyanotic. Neck: Supple. Chest: Clear to auscultation. No crepitations. No rhonchi. Cardiovascular: Regular rate and rhythm. No murmurs, no rubs, no gallops. GI: Abdomen was soft, nontender. Bowel sounds present. Extremities: Both lower extremities have chronic lymphedema changes. The left is slightly more swollen than the right. There is a sterile dressing over the mid to distal left leg. HYDRATOR: The patient is awake, alert, and oriented. Laboratory Data: None for today. Patient's glucose was 85 early this morning. Current Medications: Have all been reviewed. Antimicrobial is Zosyn and the patient is tolerating that well. ASSESSMENT: 1. Alcaligenes species infection of the left leg wound. The patient is on Zosyn. This will be switched to cefdinir at the time of discharge. 2. Morbid obesity with bilateral lymphedema. 3. Diabetes mellitus with presenting A1c of 6.5. Currently, glycemic control. 4. Normocytic anemia with underlying iron deficiency noted. 5. Vitamin D deficiency, stable. 6. Chronic kidney disease stage IIIB, stable. 7. Systolic heart failure with ejection fraction of 25%. Echocardiogram shows global hypokinesis. The patient is currently euvolemic. She is on beta javier, diuretics, and Isordil with hydralazine. She will need cardiac evaluation to rule out any coronary artery disease. This can be done outpatient since patient is currently clinically stable. 8. Hypertension, is controlled. PLAN: From a medical standpoint, we think Ms. Montanez is stable for discharge pending final recommendations from surgery and wound care. cc: Damon Bishop MD
--- NOTE | 2018-07-11 18:12 | PROGRESS NOTE ---
DATE: 07/11/2018 SUBJECTIVE: Ms. Montanez has a left calf wound and we are treating it with dressing changes and IV antibiotics per Dr. Carter. She is morbidly obese. VITAL SIGNS: Her heart rate 74, blood pressure 131/71, O2 saturation 100%. She is afebrile. Her glucoses have been 116, 198. She is receiving IV Zosyn. PLAN: We will continue wound care and IV antibiotics and control her sugar. cc: MD Damon Bruce MD
[2018-07-11] MEDS: ZOCOR PO SCH (20:59)
[2018-07-11] MEDS: BASAGLAR SUBQ SCH (22:09)
[2018-07-12] MEDS: ZOSYN 2.25 GM in NS 50 ML IV SCH ×3 (02:24→18:17)
[2018-07-12] MEDS: HUMALOG SUBQ SCH ×7 (04:00→21:43)
[2018-07-12] MEDS: HEPARIN SUBQ SCH ×3 (06:32→21:46)
[2018-07-12] MEDS: ZYRTEC PO SCH (09:18)
[2018-07-12] MEDS: FISH OIL CONCENTRATE PO SCH ×3 (09:18→18:17)
[2018-07-12] MEDS: FERROUS SULFATE PO SCH ×3 (09:19→18:18)
[2018-07-12] MEDS: NEURONTIN PO SCH ×3 (09:19→18:18)
[2018-07-12] MEDS: LASIX PO SCH ×2 (09:19→21:46)
[2018-07-12] MEDS: APRESOLINE PO SCH ×3 (09:19→18:18)
[2018-07-12] MEDS: COREG PO SCH ×2 (09:19→21:45)
[2018-07-12] MEDS: ASPIRIN EC PO SCH (09:19)
[2018-07-12] MEDS: ISORDIL PO SCH ×3 (09:19→18:18)
[2018-07-12] MEDS: DITROPAN PO SCH ×2 (09:20→21:44)
--- NOTE | 2018-07-12 13:05 | GENERAL SURGERY PROGRESS NOTE ---
DATE: 07/12/2018 SUBJECTIVE: Patient seems to be doing okay. OBJECTIVE: Vital Signs: Patient is currently afebrile. Vital signs appear stable. General Examination: No acute distress. Obese, female. Looks stated age. HEENT: Normocephalic, atraumatic. Pupils equal, round, reactive to light. Mucous membranes moist. Oropharynx benign. Neck: Supple. Trachea midline. Cardiovascular: Regular rate and rhythm. Lungs: Grossly clear. Abdomen: Obese, nontender. Extremities: Lymphedema noted to bilateral lower extremities. Wound to the left lower extremity appears to be healing. There is some red beefy tissue noted. Removed the previous packing. No active drainage. Laboratory: None this morning. ASSESSMENT AND PLAN: A 58-year-old female with lymphedema and chronic wound to left lower extremity. 1. Multiple medical comorbidities, currently being managed by the hospitalist service. 2. Lymphedema with chronic left lower extremity wound. Continue local wound care. Continue intravenous antibiotics. Wound overall seems to be doing okay but we will continue to monitor. cc: MD Damon Garland MD
--- NOTE | 2018-07-12 15:10 | PROGRESS NOTE ---
DATE: 07/12/2018 SUBJECTIVE: This morning, Ms. Montanez referred to be doing fairly okay. No new complaints. OBJECTIVE: Vital Signs: Blood pressure is 134/66, pulse is 74, respirations are 19, temperature is 98.1 degrees. General Examination: Ms. Montanez is a 58-year-old, female, morbidly obese. She is in bed. She is not in any cardiopulmonary distress. HEENT: Mucosa is pink and moist. Anicteric. Acyanotic. Neck: Supple. Chest: Clear to auscultation. No crepitations. No rhonchi. Cardiovascular: Regular rate and rhythm. No murmurs, no rubs, no gallops. GI: Abdomen is soft, nontender. Bowel sounds present. Extremities: Both lower extremities have chronic lymphedema changes. The left is slightly more swollen than the right. There is a sterile dressing over the mid to distal left leg. ON AIR DIRECTOR: The patient is awake, alert, and oriented. Laboratory Data: Glucose is 169 this morning. ASSESSMENT: 1. Alcaligenes species infection of the left leg wound. The patient is currently on intravenous Zosyn, which the bacteria is sensitive to. Today is day 4 on the medication. This can be switched to cefdinir whenever the patient is ready for discharge from a surgery standpoint. 2. Morbid obesity with bilateral lymphedema. 3. Diabetes mellitus with presenting A1c of 6.5. Patient is currently on insulin regimen. Can be transitioned back to her oral antidiabetic medications whenever she is ready for discharge. 4. Normocytic anemia with underlying iron deficiency. We will continue with replacement. 5. Vitamin D deficiency. The patient is on replacement. 6. Chronic kidney disease stage 3B, stable. 7. Systolic heart failure with ejection fraction of 25%. Echocardiogram shows global hypokinesis. Patient is currently euvolemic. She is on beta javier, Isordil with hydralazine, and diuretic. The patient has been advised to follow up with cardiology on an outpatient basis for cardiac risk stratification. 8. Hypertension, is controlled. PLAN: In general, Ms. Montanez is a consult from our surgery colleagues due to an infected left lower extremity wound. She is currently on IV antibiotics. She has been tolerating that well and her other comorbidities are under control. Whenever it is okay from the surgery, Ms. Montanez can be discharged.She is medically stable. Ms. Montanez is also advised to follow up with cardiology because of her low EF for cardiac risk stratification. She has been started on medications. Her blood pressure is better controlled and her glucose is also under better control. cc: Damon Bishop MD MTDD
[2018-07-12] MEDS: BASAGLAR SUBQ SCH (21:44)
[2018-07-12] MEDS: ZOCOR PO SCH (21:45)
[2018-07-13] MEDS: ZOSYN 2.25 GM in NS 50 ML IV SCH ×3 (02:20→17:07)
[2018-07-13] MEDS: HEPARIN SUBQ SCH ×3 (05:43→23:19)
[2018-07-13] MEDS: HUMALOG SUBQ SCH ×6 (06:49→21:16)
--- NOTE | 2018-07-13 08:07 | GENERAL SURGERY PROGRESS NOTE ---
DATE: 07/13/2018 SUBJECTIVE: Patient seems to be doing okay. OBJECTIVE: Vital Signs: Patient is currently afebrile. Her vital signs are stable. General: No acute distress. Resting comfortably. female looks stated age. HEENT: Normocephalic, atraumatic. Pupils equal, round, reactive to light. Mucous membranes moist. Oropharynx benign. Neck: Supple, trachea midline. Cardiovascular: Regular rate and rhythm. Lungs: Grossly clear. Abdomen: Obese, but nontender. Extremities: Lymphedema noted to bilateral lower extremities. Wound with dressing intact to the left lower extremity. LABORATORY: None this morning as of yet. ASSESSMENT AND PLAN: A 58-year-old female with lymphedema and chronic wound to the left lower extremity. 1. Multiple medical comorbidities currently being managed by the hospitalist service. I appreciate their help. 2. Lymphedema with chronic left lower extremity wound. At this point, continue local wound care. I anticipate discharge in the near future. We will have Dr. Carter see her again when he returns tomorrow. cc: MD Arturo Garland MD
[2018-07-13] MEDS: APRESOLINE PO SCH ×3 (10:26→17:05)
[2018-07-13] MEDS: ASPIRIN EC PO SCH (10:27)
[2018-07-13] MEDS: COREG PO SCH ×2 (10:27→23:19)
[2018-07-13] MEDS: DITROPAN PO SCH ×2 (10:28→23:19)
[2018-07-13] MEDS: FERROUS SULFATE PO SCH ×3 (10:28→17:05)
[2018-07-13] MEDS: FISH OIL CONCENTRATE PO SCH ×3 (10:28→17:05)
[2018-07-13] MEDS: LASIX PO SCH ×2 (10:29→23:19)
[2018-07-13] MEDS: ISORDIL PO SCH ×3 (10:29→17:05)
[2018-07-13] MEDS: NEURONTIN PO SCH ×3 (10:30→17:05)
[2018-07-13] MEDS: ZYRTEC PO SCH (10:30)
--- NOTE | 2018-07-13 18:32 | PROGRESS NOTE ---
DATE: 07/13/2018 SUBJECTIVE: Patient resting in bed. Not in any obvious distress. OBJECTIVE: Vital signs: Temperature 97.8 degrees, pulse is 70, respiratory rate 18, blood pressure 141/65, oxygen saturation 100%. HEENT: She is atraumatic, normocephalic. Cardiovascular: S1, S2. Respiratory: Has evidence of good air entry bilaterally. Abdomen: Obese, nontender. No masses felt. Extremities: Wound site, left leg, currently dressed and dressing is soaked. Central nervous system: No obvious focal deficit noted. LABORATORY DATA: Blood sugar is 152. ASSESSMENT AND PLAN: 1. Alcaligenes species infection of the left leg. Continue current antibiotic regimen. 2. Morbid obesity with bilateral lymphedema. 3. Diabetes mellitus. Continue blood sugar monitoring as well as sliding scale insulin. 4. Anemia, with underlying iron deficiency anemia. Follow up on hemoglobin and hematocrit. Transfuse packed red blood cells as needed. 5. Vitamin D deficiency. Continue replacement. 6. Chronic kidney disease. Follow up on renal function. Avoid nephrotoxic agent. 7. Congestive heart failure, stable. Monitor intakes and outputs, as well as daily weights. Maintain patient on beta blockers as well as diuretics as needed. Also continue Isordil as well as hydralazine. 8. Hypertension, controlled. cc: Arturo Shannon MD
[2018-07-13] MEDS: BASAGLAR SUBQ SCH (23:18)
[2018-07-13] MEDS: ZOCOR PO SCH (23:19)
[2018-07-14] MEDS: ZOSYN 2.25 GM in NS 50 ML IV SCH ×2 (02:12→09:15)
[2018-07-14] MEDS: HEPARIN SUBQ SCH (05:07)
[2018-07-14] MEDS: HUMALOG SUBQ SCH ×3 (06:36→11:03)
[2018-07-14] MEDS: ASPIRIN EC PO SCH (09:16)
[2018-07-14] MEDS: APRESOLINE PO SCH ×2 (09:16→13:20)
[2018-07-14] MEDS: COREG PO SCH (09:17)
[2018-07-14] MEDS: DITROPAN PO SCH (09:17)
[2018-07-14] MEDS: FERROUS SULFATE PO SCH ×2 (09:18→13:20)
[2018-07-14] MEDS: FISH OIL CONCENTRATE PO SCH ×2 (09:18→13:20)
[2018-07-14] MEDS: ISORDIL PO SCH ×2 (09:19→13:21)
[2018-07-14] MEDS: ZYRTEC PO SCH (09:20)
[2018-07-14] MEDS: LASIX PO SCH (09:20)
[2018-07-14] MEDS: NEURONTIN PO SCH ×2 (09:20→13:21)
[2018-07-14 11:17] VITALS: BP 120/61
--- NOTE | 2018-07-14 11:43 | GENERAL SURGERY PROGRESS NOTE ---
DATE: 07/14/2018 SUBJECTIVE: Judy says her leg feels better. It is not hurting as much. The wound is inspected today, it is pink and granulating and no longer dark. She has responded well to IV antibiotic therapy. PLAN: We will allow her to go home. She needs to clean her wound with Vashe and used Drawtex and return to see me in the Wound Center in 3 weeks. cc: MD Arturo Sanchez MD
--- NOTE | 2018-07-16 10:28 | DISCHARGE SUMMARY ---
ADMISSION DATE: 07/07/2018 DISCHARGE DATE: 07/14/2018 HISTORY: Judy is a 58-year-old -[place] female with a long history of chronic lymphedema in the left leg. She has no lymph drainage from her left leg as documented by lymph angiogram. She has had 2 different attempts to debulk the tissue in the left leg, has been left with ulcer that will not heal. She is followed in the [facility]. Recently was discovered to have some discoloration of her wound with increased pain, which is always consistent with infection. The culture grew out Escherichia coli which did not respond to p.o. Levaquin, so she is admitted for IV antibiotic therapy. Other medical problems include insulin-dependent diabetes, hypertension, hyperlipidemia, sleep apnea, and anemia. HOSPITAL COURSE: Following her admission, an IV saline lock was started. She was started on Zosyn. A new culture was obtained and grew out a different gram-negative roxi. Regardless though, after a week, her wound significant improved and was granulating nicely. Her pain was resolved. The swelling her leg had improved, so it was felt she could be discharged home. The hospitalist did follow her for her sugar. On 07/14/2018 she was discharged home. Continue to use Vashe and Drawtex at home and she will follow up in the Wound Center. cc: MD Arturo Sanchez MD
== END 2018-07-14 13:22 | disposition home health service (06) | DRG 637 ==
LOC: DIRADM 13:02 → 4N 14:02
PROVIDERS: ADMIT Internal Medicine; ATTEND Surgery
CPT/HCPCS: 71010; 71045; 80048; 80053; 81001; 82306; 82570; 82607; 82728; 82746; 82948; 83036; 83540; 83550; 83880; 83935; 84156; 84300; 84443; 84540; 85025; 85045; 87070; 87077; 87186; 87205; 93005; 93306; A9270; C8924; C8929; J1644; J1815; J1940; J2543; Q9957; XXXXX

== ENCOUNTER 2018-10-25 08:59 | Inpatient (IN) ==
[2018-10-25 13:06] LABS: HEMATOCRIT 34.9 % (37.0-47.0); HEMOGLOBIN 10.9 g/dL (12.0-16.0); MCH 26.3 PG (27-31); MCHC 31.2 g/dL (33-37); MCV 84.1 FL (81-99); MPV 9.2 FL (7.4-10.4); RBC 4.15 XMIL (4.2-5.4); RDW 15.4 % (11.5-14.5); WBC 8.44 X1000 (4.8-10.8)
[2018-10-25 13:28] LABS: CALCIUM 9.3 mg/dL (8.8-10.2); POTASSIUM 4.1 mmol/L (3.5-5.1)
--- NOTE | 2018-10-25 17:14 | HISTORY AND PHYSICAL ---
CHIEF COMPLAINT: Infected left calf wound. HISTORY: This is an obese, female with a long history of lymphedema in the left leg. 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 She has a wound on the left calf that is chronic. Wound care as an outpatient is not very consistent and she intermittently requires admission for wound care and IV antibiotics. PAST MEDICAL HISTORY: Other medical problems include morbid obesity, noninsulin-dependent diabetes, hypertension, hyperlipidemia, sleep apnea, anemia. MEDICATIONS: At home include gabapentin 600 mg t.i.d., glipizide 10 mg b.i.d., Lantus insulin 30 units at bedtime, aspirin 81 mg daily, Tradjenta 15 mg daily, fish oil 1000 mg t.i.d., Ditropan 15 mg b.i.d., Zocor 40 mg at bedtime, iron sulfate 325 mg t.i.d., vitamin B12 1000 mcg daily, hydrochlorothiazide 25 mg p.o. q.a.m. ALLERGIES: She is allergic to metronidazole. PAST SURGICAL HISTORY: Debulking of her left leg on more than 1 occasion, . FAMILY HISTORY: Noncontributory. SOCIAL HISTORY: She does not smoke. Does not drink alcohol. Does not use illicit substances. REVIEW OF SYSTEMS: Otherwise negative. PHYSICAL EXAMINATION: VITAL SIGNS: She is afebrile. Heart rate 75, blood pressure 154/74. NECK: No cervical adenopathy. LUNGS: Bilateral breath sounds. HEART: Regular rate and rhythm. ABDOMEN: Soft. She is obese. EXTREMITIES: Left leg is massively edematous. The wound has some dark discoloration with an odor in the left calf. Pedal pulses present. NEUROLOGIC: She is awake alert and oriented. LABS: White count is 8,400, hemoglobin 10.9, hematocrit 35. BUN 41, creatinine 2.0. ASSESSMENT: Chronic nonhealing ulcer of the left leg. PLAN: IV antibiotic therapy. We will base our antibiotic choice on her culture done on the . We will watch her renal function as well. cc: Micheal Carter MD
[2018-10-25] MEDS: ZOSYN 3.375 GM in NS 50 ML IV SCH ×2 (17:25→22:23)
[2018-10-25] MEDS: LEVAQUIN 500 MG in NS 100 ML IV SCH (18:14)
[2018-10-25] MEDS ORDERED: COREG PO ONE (20:51)
[2018-10-25] MEDS ORDERED: FERROUS SULFATE PO ONE (20:58)
[2018-10-25] MEDS ORDERED: LASIX PO ONE (21:09)
[2018-10-25] MEDS ORDERED: ZOCOR PO ONE (21:10)
[2018-10-25] MEDS ORDERED: NEURONTIN PO ONE (21:10)
[2018-10-25] MEDS ORDERED: LANTUS INSULIN SUBQ ONE (21:10)
[2018-10-26] MEDS: ZOSYN 3.375 GM in NS 50 ML IV SCH ×3 (04:47→16:03)
[2018-10-26 07:45] LABS: CALCIUM 8.9 mg/dL (8.8-10.2); CREATININE 1.9 mg/dL (0.5-0.9); POTASSIUM 4.5 mmol/L (3.5-5.1)
[2018-10-26] MEDS ORDERED: VITAMIN D PO SCH (18:00)
--- NOTE | 2018-10-26 18:17 | GENERAL SURGERY PROGRESS NOTE ---
DATE: 10/26/2018 Wound was changed today, and the wound-care nurse notice maggots and cleaned them from the wound. We will continue with the use of Vashe and Drawtex. We will keep her on the Levaquin and piperacillin or Zosyn. We will reinspect her wound in a few days. cc: Micheal Carter MD
[2018-10-26] MEDS: LEVAQUIN 500 MG in NS 100 ML IV SCH (23:33)
[2018-10-26] MEDS: COREG PO SCH (23:34)
[2018-10-26] MEDS: ZOCOR PO SCH (23:34)
[2018-10-26] MEDS: LANTUS INSULIN SUBQ SCH (23:34)
[2018-10-26] MEDS: LASIX PO SCH (23:34)
[2018-10-27] MEDS: ZOSYN 3.375 GM in NS 50 ML IV SCH ×5 (00:42→23:52)
[2018-10-27] MEDS: TYLENOL PO PRN (03:12)
[2018-10-27] MEDS ORDERED: APRESOLINE PO SCH (09:00)
[2018-10-27] MEDS ORDERED: FISH OIL CONCENTRATE PO SCH (09:00)
[2018-10-27] MEDS ORDERED: NEURONTIN PO SCH (09:00)
[2018-10-27] MEDS ORDERED: FERROUS SULFATE PO SCH (09:00)
[2018-10-27] MEDS: ZYRTEC PO SCH (09:02)
[2018-10-27] MEDS: LASIX PO SCH ×2 (09:02→22:54)
[2018-10-27] MEDS: COREG PO SCH ×2 (09:03→22:54)
[2018-10-27] MEDS: TRADJENTA PO SCH (09:03)
[2018-10-27] MEDS: GLUCOTROL PO SCH ×2 (09:03→17:47)
[2018-10-27] MEDS: HYDROCHLOROTHIAZIDE PO SCH (09:03)
[2018-10-27] MEDS: ASPIRIN EC PO SCH (09:03)
[2018-10-27] MEDS: DITROPAN PO SCH (09:04)
--- NOTE | 2018-10-27 12:04 | GENERAL SURGERY PROGRESS NOTE ---
DATE: 10/27/2018 Judy is afebrile. Her hemodynamics are okay. Her sugars are better. We are treating her with Zosyn and Levaquin in view of her sensitivities. We will check her wound again tomorrow. cc: Micheal Carter MD
[2018-10-27] MEDS: FISH OIL CONCENTRATE PO SCH ×2 (16:08→22:54)
[2018-10-27] MEDS: APRESOLINE PO SCH ×2 (16:08→22:53)
[2018-10-27] MEDS: NEURONTIN PO SCH ×2 (16:08→22:54)
[2018-10-27] MEDS: FERROUS SULFATE PO SCH ×2 (16:08→22:54)
[2018-10-27] MEDS: LEVAQUIN 500 MG in NS 100 ML IV SCH (22:48)
[2018-10-27] MEDS: LANTUS INSULIN SUBQ SCH (22:49)
[2018-10-27] MEDS: ZOCOR PO SCH (22:53)
[2018-10-28] MEDS: TYLENOL PO PRN (05:14)
[2018-10-28] MEDS: ZOSYN 3.375 GM in NS 50 ML IV SCH (05:14)
[2018-10-28 07:43] LABS: CALCIUM 8.6 mg/dL (8.8-10.2); CREATININE 2.5 mg/dL (0.5-0.9); POTASSIUM 4.1 mmol/L (3.5-5.1)
[2018-10-28] MEDS: TRADJENTA PO SCH (08:25)
[2018-10-28] MEDS: FISH OIL CONCENTRATE PO SCH ×3 (08:26→20:16)
[2018-10-28] MEDS: ZYRTEC PO SCH (08:26)
[2018-10-28] MEDS: ASPIRIN EC PO SCH (08:27)
[2018-10-28] MEDS: COREG PO SCH ×2 (08:27→20:17)
[2018-10-28] MEDS: FERROUS SULFATE PO SCH ×3 (08:27→20:17)
[2018-10-28] MEDS: LASIX PO SCH ×2 (08:27→20:17)
[2018-10-28] MEDS: APRESOLINE PO SCH ×3 (08:27→20:17)
[2018-10-28] MEDS: NEURONTIN PO SCH ×3 (08:27→20:17)
[2018-10-28] MEDS: DITROPAN PO SCH (08:27)
[2018-10-28] MEDS: GLUCOTROL PO SCH ×2 (08:29→15:59)
[2018-10-28] MEDS: HYDROCHLOROTHIAZIDE PO SCH (08:35)
--- NOTE | 2018-10-28 10:24 | GENERAL SURGERY PROGRESS NOTE ---
DATE: 10/28/2018 Judy's wound looks better today. It does not have as much dark tissue. Unfortunately, her creatinine has gone up to 2.5, so we will have to stop her Zosyn. I will start her on normal saline at 100 mL an hour to give her better renal perfusion. cc: Micheal Carter MD
[2018-10-28] MEDS: NS 1,000 ML IV SCH ×2 (10:43→23:07)
[2018-10-28] MEDS: ZOCOR PO SCH (20:17)
[2018-10-28] MEDS: LANTUS INSULIN SUBQ SCH (20:18)
[2018-10-28] MEDS: LEVAQUIN 500 MG in NS 100 ML IV SCH (23:03)
[2018-10-29] MEDS: NS 1,000 ML IV SCH ×2 (06:46→16:14)
[2018-10-29 07:38] LABS: CALCIUM 8.6 mg/dL (8.8-10.2); CREATININE 2.4 mg/dL (0.5-0.9); POTASSIUM 3.9 mmol/L (3.5-5.1)
[2018-10-29] MEDS: APRESOLINE PO SCH ×2 (08:27→16:13)
[2018-10-29] MEDS: FISH OIL CONCENTRATE PO SCH ×2 (08:27→16:12)
[2018-10-29] MEDS: COREG PO SCH (08:29)
[2018-10-29] MEDS: TRADJENTA PO SCH (08:33)
[2018-10-29] MEDS: GLUCOTROL PO SCH ×2 (08:33→16:11)
[2018-10-29] MEDS: FERROUS SULFATE PO SCH ×2 (08:33→16:13)
[2018-10-29] MEDS: ASPIRIN EC PO SCH (08:34)
[2018-10-29] MEDS: DITROPAN PO SCH (08:34)
[2018-10-29] MEDS: NEURONTIN PO SCH ×2 (08:34→16:13)
[2018-10-29] MEDS: ZYRTEC PO SCH (08:34)
[2018-10-29] MEDS: LASIX PO SCH (08:41)
[2018-10-29] MEDS: HYDROCHLOROTHIAZIDE PO SCH (08:41)
[2018-10-29] MEDS ORDERED: HALL'S COUGH LOZENGE MT PRN (14:18)
[2018-10-29] MEDS ORDERED: NON-FORMULARY BULK MED PO PRN (14:22)
[2018-10-29 16:38] VITALS: BP 112/52
--- NOTE | 2018-10-29 19:45 | GENERAL SURGERY PROGRESS NOTE ---
DATE: 10/29/2018 Judy's wound looks a lot better. It is pinker now and there is no further necrosis. Her creatinine is started responding come back down, it is down to 2.4 today. I think it will be okay for her to go home. She will return to the Wound Center in 3 weeks. We will give her Levaquin for 3 more days. She is to use Vashe and Drawtex at home. cc: Micheal Carter MD
--- NOTE | 2018-11-09 16:45 | DISCHARGE SUMMARY ---
ADMISSION DATE: 10/25/2018 DISCHARGE DATE: 10/29/2018 PRIMARY DISCHARGE DIAGNOSES: 1. Infected left leg ulcer. 2. Congenital lymphedema of the left leg. 3. Morbid obesity. 4. Sleep apnea. 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 She has a wound that intermittently gets infected. She is followed in the [facility]ound Clinic. Her economic status is poor, and therefore care for her at home is difficult. So, we found it best to admit her whenever she gets an infected ulcer to treat her with IV antibiotics, and this will get her wound back to normal appearance with granulation. We did in fact culture her wound in the Wound Center. She grew out only Proteus this time. She was placed on Zosyn whenever she was admitted. This covered her Proteus well. So while in the hospital, we treated her wound with Vashe gauze and Drawtex. After 4 days of IV antibiotics, her wound significantly improved, and it was felt she could be discharged home. We did give her Levaquin to take at home once daily for a week. She will follow up in the Wound Center. She will resume her usual medicines. cc: Micheal Carter MD
== END 2018-10-29 18:56 | disposition home or self-care (01) | DRG 593 ==
LOC: DIRADM 08:59 → 4N 12:30
PROVIDERS: ADMIT Surgery; ATTEND Surgery

== ENCOUNTER 2019-01-21 15:50 | Inpatient (IN) ==
--- NOTE | 2019-01-21 16:35 | HISTORY AND PHYSICAL ---
CHIEF COMPLAINT: Infected left calf wound. HISTORY OF PRESENT ILLNESS: This is an obese female, well known to the Wound Center with a chronic wound in her left calf. She has a history of lymphedema in the left calf, with no lymphatic drainage from her left leg. As a result, she has developed a huge leg, almost elephantiasis type leg, and she has had a couple of attempts in the past at resection of the extra tissue, but she has been left with a chronic wound that repeatedly gets infected. Previous cultures have grown out typically Escherichia coli, Pseudomonas, and most recently Providencia. She has been treated as an outpatient, but the wound simply is worsening and enlarging. She has responded in the past to IV antibiotic therapy in the hospital, and so now she is readmitted for IV antibiotic therapy. PAST MEDICAL HISTORY: Pertinent for morbid obesity, noninsulin dependent diabetes, hypertension, hyperlipidemia, sleep apnea, and anemia. HOME MEDICATIONS: Her medications at home include most recently Levaquin and also she is on iron sulfate 325 mg 3 times a day, hydrochlorothiazide 25 mg every morning, glipizide 10 mg twice a day, gabapentin 600 mg 3 times a day, Lantus insulin 30 units at bedtime, aspirin 81 mg a day, Tradjenta 15 mg daily, fish oil 1000 mg 3 times a day, Ditropan 15 mg daily, Zocor 40 mg at bedtime, cetirizine 1 tablet daily, Apresoline 10 mg 3 times a day, Coreg 3.125 mg twice daily, Lasix 20 mg twice daily, and vitamin D 50,000 units orally every 7 days. ALLERGIES: She is allergic to Flagyl. FAMILY HISTORY: Noncontributory. PAST SURGICAL HISTORY: Previous surgery includes the debulking of her leg tissue as noted above. She has also had a section. SOCIAL HISTORY: She does not smoke. Denies alcohol use. Denies illicit drug use. REVIEW OF SYSTEMS: Negative in other 10 subsystems besides as noted above. PHYSICAL EXAMINATION: VITAL SIGNS: She is afebrile. Heart rate is 70. Blood pressure is 150/80. NECK: No cervical adenopathy. LUNGS: Bilateral breath sounds. HEART: Regular rate and rhythm. ABDOMEN: Soft and nontender. EXTREMITIES: Her left leg is massively obese. A large wound is present in the left calf with discolored granulating tissue. Pedal pulses are present. She is awake, alert, and oriented. ASSESSMENT: Chronic ulcer, left leg, that is infected. PLAN: Admission. IV antibiotic therapy. Possible plan to place a group home catheter for home IV antibiotic treatment. cc: Micheal Carter MD
[2019-01-21] MEDS ORDERED: SALINE LOCK IV FLUID XX ONE (17:46)
[2019-01-21 18:41] LABS: BASO# 0.04 X1000 (0.0-0.2); BASO% 0.6 % (0.0-0.8); EOS# 0.16 X1000 (0.0-0.7); EOS% 2.4 % (0.0-10.0); HEMATOCRIT 37.1 % (37.0-47.0); HEMOGLOBIN 11.4 g/dL (12.0-16.0); LYMPH# 1.62 X1000 (1.2-3.4); LYMPH% 23.8 % (20.5-51.1); MCHC 30.7 g/dL (33-37); MCV 87.7 FL (81-99); MONO# 0.67 X1000 (0.11-0.59); MONO% 9.9 % (1.7-9.3); MPV 10.2 FL (7.4-10.4); NEUT# 4.31 X1000 (1.4-6.5); NEUT% 63.3 % (42.2-75.2); PLT 187 X1000 (130-400); RBC 4.23 XMIL (4.2-5.4); RDW 14.3 % (11.5-14.5)
[2019-01-21 18:59] LABS: CALCIUM 8.5 mg/dL (8.8-10.2); CREATININE 2.2 mg/dL (0.5-0.9)
[2019-01-22] MEDS: ULTRAM PO PRN ×3 (01:09→16:53)
[2019-01-22] MEDS: MAXIPIME 1 GM in NS 50 ML IV SCH ×3 (01:10→22:02)
[2019-01-22] MEDS: LOVENOX SUBQ SCH ×2 (01:11→22:02)
--- NOTE | 2019-01-22 06:29 | GENERAL SURGERY PROGRESS NOTE ---
DATE: 01/22/2019 SUBJECTIVE: Patient directly admitted [facility] yesterday for wound. She seems to be doing okay. OBJECTIVE: Vital Signs: Patient is currently afebrile. Her vital signs are stable. General: No acute distress. Morbidly obese female, looks stated age. HEENT: Normocephalic, atraumatic. Pupils equal, round, reactive to light. Mucous membranes moist. Oropharynx benign. Neck: Supple. Trachea midline. Cardiovascular: Regular rate and rhythm. Lungs: Grossly clear. Abdomen: Soft, nontender, nondistended. Extremities: Wound to the left knee with associated lymphedema. Dressing intact. Vascular: All extremities perfused. Neurologic: Grossly intact. Skin: Wound as noted above. ASSESSMENT AND PLAN: A 58-year-old female with left leg wound. Left leg wound. At this time, continue local wound care as written by Dr. Carter. We will continue to follow and do dressing changes. We will monitor her closely. She is on IV antibiotics per Dr. Carter's recommendation with Maxipime. We will continue to follow. cc: MD Micheal Garland MD
[2019-01-22] MEDS ORDERED: GLUCOTROL PO SCH (07:00)
[2019-01-22] MEDS: GLUCOTROL PO SCH ×2 (10:32→16:53)
[2019-01-22] MEDS: FISH OIL CONCENTRATE PO SCH ×3 (10:32→16:53)
[2019-01-22] MEDS: COREG PO SCH ×2 (10:32→22:06)
[2019-01-22] MEDS: FERROUS SULFATE PO SCH ×3 (10:32→16:54)
[2019-01-22] MEDS: LASIX PO SCH ×2 (10:32→22:02)
[2019-01-22] MEDS: APRESOLINE PO SCH ×3 (10:32→16:53)
[2019-01-22] MEDS: DITROPAN XL PO SCH (10:33)
[2019-01-22] MEDS: NEURONTIN PO SCH ×3 (10:33→16:53)
[2019-01-22] MEDS: TRADJENTA PO SCH (10:33)
[2019-01-22] MEDS: ASPIRIN PO SCH (10:33)
[2019-01-22] MEDS: HYDROCHLOROTHIAZIDE PO SCH (10:34)
[2019-01-22] MEDS: VITAMIN D PO SCH (10:39)
[2019-01-22] MEDS: ZYRTEC PO SCH (10:40)
[2019-01-22] MEDS: ZOCOR PO SCH (22:02)
[2019-01-22] MEDS: LANTUS INSULIN SUBQ SCH (22:06)
--- NOTE | 2019-01-23 07:13 | GENERAL SURGERY PROGRESS NOTE ---
DATE: 01/23/2019 SUBJECTIVE: The patient seems to be doing okay. No major issues. OBJECTIVE: Vital Signs: The patient is currently afebrile. Her vital signs are stable. General: No acute distress. HEENT: Normocephalic, atraumatic. Pupils equal, round, reactive to light. Mucous membranes moist. Oropharynx benign. Neck: Supple. Trachea midline. Cardiovascular: Regular rhythm. Lungs: Grossly clear. Abdomen: Soft, nontender. Extremities: Wound to left leg noted and unchanged, still with significant lymphedema. ASSESSMENT AND PLAN: A 58-year-old female with left leg wound. Left leg wound. At this time, continue local wound care. Will continue daily dressing changes. Dr. Carter will be back on Thursday. Will continue intravenous antibiotics. cc: MD Micheal Garland MD
[2019-01-23] MEDS: DITROPAN XL PO SCH (09:26)
[2019-01-23] MEDS: ZYRTEC PO SCH (09:26)
[2019-01-23] MEDS: FISH OIL CONCENTRATE PO SCH ×3 (09:26→16:17)
[2019-01-23] MEDS: APRESOLINE PO SCH ×3 (09:26→16:19)
[2019-01-23] MEDS: HYDROCHLOROTHIAZIDE PO SCH (09:27)
[2019-01-23] MEDS: TRADJENTA PO SCH (09:27)
[2019-01-23] MEDS: NEURONTIN PO SCH ×3 (09:27→16:19)
[2019-01-23] MEDS: ULTRAM PO PRN ×2 (09:27→16:19)
[2019-01-23] MEDS: LASIX PO SCH ×2 (09:27→20:18)
[2019-01-23] MEDS: ASPIRIN PO SCH (09:27)
[2019-01-23] MEDS: COREG PO SCH ×2 (09:27→20:18)
[2019-01-23] MEDS: FERROUS SULFATE PO SCH ×3 (09:27→16:19)
[2019-01-23] MEDS: MAXIPIME 1 GM in NS 50 ML IV SCH ×2 (11:43→23:14)
[2019-01-23] MEDS: GLUCOTROL PO SCH (16:19)
[2019-01-23] MEDS: LOVENOX SUBQ SCH (20:18)
[2019-01-23] MEDS: ZOCOR PO SCH (20:18)
[2019-01-23] MEDS: LANTUS INSULIN SUBQ SCH (20:28)
[2019-01-24] MEDS: GLUCOTROL PO SCH ×4 (06:53→19:14)
[2019-01-24] MEDS: NS 1,000 ML IV SCH ×2 (09:07→22:13)
[2019-01-24] MEDS: TRADJENTA PO SCH (09:08)
[2019-01-24] MEDS: ZYRTEC PO SCH (09:08)
[2019-01-24] MEDS: ASPIRIN PO SCH (09:08)
[2019-01-24] MEDS: APRESOLINE PO SCH ×3 (09:08→19:15)
[2019-01-24] MEDS: FISH OIL CONCENTRATE PO SCH ×4 (09:08→19:15)
[2019-01-24] MEDS: COREG PO SCH ×2 (09:08→22:08)
[2019-01-24] MEDS: DITROPAN XL PO SCH (09:08)
[2019-01-24] MEDS: NEURONTIN PO SCH ×4 (09:08→19:15)
[2019-01-24] MEDS: FERROUS SULFATE PO SCH ×4 (09:08→19:15)
[2019-01-24] MEDS: MAXIPIME 1 GM in NS 50 ML IV SCH ×2 (11:53→22:09)
[2019-01-24] MEDS: ZOCOR PO SCH (22:08)
[2019-01-24] MEDS: LOVENOX SUBQ SCH (22:08)
[2019-01-24] MEDS: LANTUS INSULIN SUBQ SCH (23:11)
[2019-01-25] MEDS: NS 1,000 ML IV SCH (06:39)
[2019-01-25] MEDS: GLUCOTROL PO SCH ×2 (06:39→16:20)
[2019-01-25 07:11] LABS: CALCIUM 8.1 mg/dL (8.8-10.2); CREATININE 1.8 mg/dL (0.5-0.9); POTASSIUM 4.3 mmol/L (3.5-5.1)
[2019-01-25] MEDS ORDERED: DIPRIVAN 1% ONE ×2 (07:32→09:49)
[2019-01-25] MEDS ORDERED: XYLOCAINE-MPF 2% ONE ×2 (07:34→09:49)
[2019-01-25] MEDS ORDERED: HEPARIN (DOSE) ONE (07:54)
[2019-01-25] MEDS: APRESOLINE PO SCH ×3 (09:08→15:20)
[2019-01-25] MEDS: ZYRTEC PO SCH (09:08)
[2019-01-25] MEDS: FERROUS SULFATE PO SCH ×3 (09:08→16:20)
[2019-01-25] MEDS: FISH OIL CONCENTRATE PO SCH ×3 (09:08→16:20)
[2019-01-25] MEDS: DITROPAN XL PO SCH (09:09)
[2019-01-25] MEDS: NEURONTIN PO SCH ×3 (09:09→13:52)
[2019-01-25] MEDS: COREG PO SCH (09:09)
[2019-01-25] MEDS: ASPIRIN PO SCH (09:10)
[2019-01-25] MEDS: TRADJENTA PO SCH (09:10)
[2019-01-25] MEDS ORDERED: QUELICIN (DOSE) ONE ×2 (09:48→10:20)
[2019-01-25] MEDS ORDERED: AMIDATE ONE (09:50)
[2019-01-25] MEDS ORDERED: VENTOLIN HFA ONE (09:51)
[2019-01-25] MEDS ORDERED: OFIRMEV 1000 MG/ISOTONIC SOLN 1,000 MG/100 ML BOTTLE ONE (10:17)
[2019-01-25] MEDS: MAXIPIME 1 GM in NS 50 ML IV SCH (11:07)
[2019-01-25] MEDS ORDERED: VITAMIN D PO SCH (11:46)
[2019-01-25] MEDS ORDERED: FERROUS SULFATE PO SCH (11:46)
--- NOTE | 2019-01-25 15:16 | OPERATIVE NOTE ---
PROCEDURE DATE: 01/25/2019 PROCEDURE: Selective debridement of left leg wound, including skin and subcutaneous tissue, measuring 7 x 12 cm. SURGEON: Micheal Carter M.D. [place] REPRESENTATIVE: ILYA Rodriguez. PREOPERATIVE DIAGNOSIS: Infected left leg wound. POSTOPERATIVE DIAGNOSIS: Infected left leg wound. DESCRIPTION OF PROCEDURE: Satisfactory general anesthesia was achieved. The left leg was prepped and draped in a sterile fashion. We used a large curette to curette the extent of the wound. This measured 12 x 7 cm and involved the skin and subcutaneous tissue, scraping away the attached exudate and slough, all the way down to viable bleeding granulating tissue. We did that circumferentially and throughout the extent of the wound. Upon completion, we then irrigated it copiously with saline. Hemostasis was satisfactory. We then packed it with saline-impregnated gauze, followed by 4 x 4s, followed by Kerlix, followed by a 6-inch Sumeet. She tolerated it well, and was sent to the recovery room in satisfactory condition. cc: Micheal Carter MD
[2019-01-25] MEDS: ULTRAM PO PRN (16:20)
[2019-01-25] MEDS: VITAMIN D PO SCH (16:20)
[2019-01-25] MEDS ORDERED: GLUCOTROL PO SCH (17:00)
[2019-01-25] MEDS ORDERED: LANTUS INSULIN SUBQ SCH (21:00)
[2019-01-25] MEDS ORDERED: COREG PO SCH (21:00)
[2019-01-26] MEDS: LOVENOX SUBQ SCH ×2 (00:01→21:59)
[2019-01-26] MEDS: ZOCOR PO SCH ×3 (00:01→22:00)
[2019-01-26] MEDS: MAXIPIME 1 GM in NS 50 ML IV SCH ×3 (00:01→22:00)
[2019-01-26] MEDS: APRESOLINE PO SCH ×4 (00:02→22:00)
[2019-01-26] MEDS: COREG PO SCH ×3 (00:02→22:00)
[2019-01-26] MEDS: NEURONTIN PO SCH ×4 (00:02→22:00)
[2019-01-26] MEDS: ULTRAM PO PRN ×2 (00:13→07:39)
[2019-01-26] MEDS: NS 1,000 ML IV SCH (04:08)
[2019-01-26] MEDS: GLUCOTROL PO SCH ×2 (06:34→16:07)
[2019-01-26] MEDS: PERIDEX MT SCH ×2 (08:40→21:59)
[2019-01-26] MEDS: FISH OIL CONCENTRATE PO SCH ×3 (08:40→16:07)
[2019-01-26] MEDS: FERROUS SULFATE PO SCH ×3 (08:42→16:08)
[2019-01-26] MEDS: TRADJENTA PO SCH (08:43)
[2019-01-26] MEDS: ZYRTEC PO SCH (08:43)
[2019-01-26] MEDS: DITROPAN XL PO SCH (08:43)
[2019-01-26] MEDS: ASPIRIN EC PO SCH (08:45)
[2019-01-26] MEDS ORDERED: ZYRTEC PO SCH (09:00)
[2019-01-26] MEDS ORDERED: TRADJENTA PO SCH (09:00)
--- NOTE | 2019-01-26 11:48 | GENERAL SURGERY PROGRESS NOTE ---
DATE: 01/26/2019 Ms. Montanez is first day after debridement of her wound. We will continue with the current antibiotic therapy. Her culture grew out E. coli. It is sensitive to Zosyn and even cefazolin, and Augmentin. PLAN: The plan will be to recheck her creatinine tomorrow and hopefully have her out of the hospital by the end of the week. The challenge is to keep this wound progressing at home and not regressing. cc: Micheal Carter MD
[2019-01-26] MEDS: LANTUS INSULIN SUBQ SCH ×2 (21:59)
[2019-01-27] MEDS: NS 1,000 ML IV SCH ×5 (02:02→17:13)
[2019-01-27] MEDS: ZOCOR PO SCH ×3 (03:02→21:20)
[2019-01-27] MEDS: GLUCOTROL PO SCH ×2 (06:34→16:49)
[2019-01-27 07:56] LABS: CALCIUM 8.5 mg/dL (8.8-10.2); CREATININE 1.6 mg/dL (0.5-0.9); POTASSIUM 4.5 mmol/L (3.5-5.1)
[2019-01-27] MEDS: PERIDEX MT SCH ×2 (09:37→21:17)
[2019-01-27] MEDS: TRADJENTA PO SCH (09:38)
[2019-01-27] MEDS: FISH OIL CONCENTRATE PO SCH ×3 (09:38→16:49)
[2019-01-27] MEDS: NEURONTIN PO SCH ×3 (09:38→21:17)
[2019-01-27] MEDS: COREG PO SCH ×2 (09:38→21:17)
[2019-01-27] MEDS: APRESOLINE PO SCH ×3 (09:38→21:18)
[2019-01-27] MEDS: ZYRTEC PO SCH (09:38)
[2019-01-27] MEDS: ASPIRIN EC PO SCH (09:38)
[2019-01-27] MEDS: DITROPAN XL PO SCH (09:38)
[2019-01-27] MEDS: FERROUS SULFATE PO SCH ×3 (09:38→16:49)
[2019-01-27] MEDS: KEFLEX PO SCH ×2 (13:12→21:18)
--- NOTE | 2019-01-27 16:50 | GENERAL SURGERY PROGRESS NOTE ---
DATE: 01/27/2019 Judy's wound looks better. She is afebrile. Her BUN is down to 31 and creatinine down to 1.6 . Her sugars are reasonably well controlled. The plan is to discharge her tomorrow to follow up in the wound clinic. cc: Micheal Carter MD
[2019-01-27] MEDS: LANTUS INSULIN SUBQ SCH (21:26)
[2019-01-27] MEDS: LOVENOX SUBQ SCH (21:26)
[2019-01-28] MEDS: KEFLEX PO SCH ×3 (03:35→14:11)
[2019-01-28] MEDS: NS 1,000 ML IV SCH (06:17)
[2019-01-28] MEDS: GLUCOTROL PO SCH ×2 (06:42→15:58)
[2019-01-28 07:05] LABS: CREATININE 1.6 mg/dL (0.5-0.9); POTASSIUM 4.8 mmol/L (3.5-5.1)
[2019-01-28] MEDS: NEURONTIN PO SCH ×2 (08:34→14:11)
[2019-01-28] MEDS: DITROPAN XL PO SCH (09:53)
[2019-01-28] MEDS: FISH OIL CONCENTRATE PO SCH ×2 (09:53→14:11)
[2019-01-28] MEDS: APRESOLINE PO SCH ×2 (09:53→15:58)
[2019-01-28] MEDS: FERROUS SULFATE PO SCH ×2 (09:54→14:11)
[2019-01-28] MEDS: ASPIRIN EC PO SCH (09:54)
[2019-01-28] MEDS: COREG PO SCH (09:54)
[2019-01-28] MEDS: TRADJENTA PO SCH (09:54)
[2019-01-28] MEDS: PERIDEX MT SCH (09:54)
[2019-01-28] MEDS: ZYRTEC PO SCH (09:54)
[2019-01-28 16:06] VITALS: BP 132/67
--- NOTE | 2019-01-28 19:07 | GENERAL SURGERY PROGRESS NOTE ---
DATE: 01/28/2019 SUBJECTIVE/OBJECTIVE: Judy's wound looks excellent. It is granulating. It is pink. ASSESSMENT/PLAN: We will discharge today to use Vashe and Drawtex at home on a daily basis. We will get home health to see her. She will return to see me [facility] in 1 week. Her creatinine is down to 1.6. cc: Micheal Carter MD
== END 2019-01-28 16:57 | disposition home health service (06) | DRG 857 ==
LOC: DIRADM 15:50 → EDIPHOLD 17:13 → 4N 20:03
PROVIDERS: ADMIT Surgery; ATTEND Surgery

== ENCOUNTER 2019-03-06 13:51 | Inpatient (IN) ==
[2019-03-06] MEDS ORDERED: DUONEB (A & A) ONE (13:56)
[2019-03-06 14:05] LABS: BE 2.4 mmoll (-3.0-3.0); BLOOD TYPE ARTERIAL; HCO3-(ACT) 26.6 mmoll (20.0-26.0); METHB 1.5 % (0.0-1.5); O2HB 91.1 % (95.0-99.0); PCO2(98.6) 42 mmHg (35-45); PO2(98.6) 60 mmHg (60-100); SAMPLE BLOOD; THB 12.5 g/dL (11.5-17.4); pH(98.6) 7.42 (7.35-7.45)
[2019-03-06 14:07] LABS: ALLEN TEST YES; MODALITY CANNULA
--- NOTE | 2019-03-06 14:41 | Diag Imaging Result Doc PS360 ---
EXAM: CHEST-1 VIEW 03/06/2019 HISTORY: sepsis protocol TECHNIQUE: AP portable semierect at 1429 COMMENT: Compared to 07/08/2018 the heart size is apparently decreased. The lungs appear to be clear. The pulmonary vascularity is prominent. IMPRESSION: No evidence of acute disease. Electronically signed by Javier Munoz 03/06/2019 2:38 PM
[2019-03-06 14:42] LABS: INR 1.08; PROTIME 14.6 Seconds (11.0-16.0)
[2019-03-06 14:43] LABS: PTT 29.7 Seconds (22.3-41.8)
[2019-03-06 14:48] LABS: BASO# 0.03 X1000 (0.0-0.2); BASO% 0.2 % (0.0-0.8); EOS# 0.11 X1000 (0.0-0.7); EOS% 0.6 % (0.0-10.0); HEMATOCRIT 36.8 % (37.0-47.0); HEMOGLOBIN 11.3 g/dL (12.0-16.0); IMM GRAN# 0.04 X1000 (0.0-0.04); IMM GRAN% 0.2 % (0.0-0.5); LYMPH# 1.01 X1000 (1.2-3.4); LYMPH% 5.3 % (20.5-51.1); MCH 26.3 PG (27-31); MCHC 30.7 g/dL (33-37); MCV 85.6 FL (81-99); MONO% 4.7 % (1.7-9.3); MPV 10.1 FL (7.4-10.4); NEUT# 16.86 X1000 (1.4-6.5); PLT 189 X1000 (130-400); RDW 13.9 % (11.5-14.5); WBC 18.95 X1000 (4.8-10.8)
[2019-03-06 14:53] LABS: URINE SOURCE CATH
[2019-03-06 14:58] LABS: CALCIUM 8.9 mg/dL (8.8-10.2); CREATININE 2.1 mg/dL (0.5-0.9); MAGNESIUM 1.6 mg/dL (1.5-2.7); POTASSIUM 4.3 mmol/L (3.5-5.1); TOTAL BILIRUBIN 0.7 mg/dL (0.20-1.00); TOTAL PROTEIN 8.8 g/dL (6.3-8.3)
[2019-03-06 15:02] LABS: BILIRUBIN URINE NEGATIVE (NEGATIVE); BLOOD URINE TRACE (NEGATIVE); COLOR YELLOW; GLUCOSE URINE NEGATIVE (NEGATIVE); KETONE URINE NEGATIVE (NEGATIVE); LEUKOCYTES URINE LARGE (NEGATIVE); NITRITE URINE POSITIVE (NEGATIVE); PH URINE 5.5; PROTEIN URINE TRACE mg/dL (NEGATIVE); SP GRAVITY URINE 1.011; TURBIDITY URINE HAZY (CLEAR); UR EPITHELIAL CELLS <10 /HPF (<10); URINE BACTERIA 4+ /HPF; URINE RBC <10 /HPF (<10); URINE WBC TNTC /HPF (<10); UROBILINOGEN URINE NORMAL (NORMAL)
[2019-03-06 15:03] LABS: LYMPHS 7 % (21-51); MONO 3 % (1-9); SEGS 90 % (42-75)
[2019-03-06 15:04] LABS: HYPOCHROM 2+
[2019-03-06] MEDS ORDERED: ROCEPHIN 2 GM in NS 50 ML IV ONE (15:53)
[2019-03-06] MEDS ORDERED: KLOR-CON PO ONE (16:33)
[2019-03-06] MEDS ORDERED: HUMULIN R IV ONE (16:33)
[2019-03-06] MEDS ORDERED: NS 1,000 ML IV ONE ×2 (17:33→18:20)
[2019-03-06] MEDS ORDERED: VANCOMYCIN 1 GM/NS 1 GM/250 ML IVPB IV ONE (17:33)
--- NOTE | 2019-03-06 17:33 | PROVIDER DOCUMENTATION ---
This chart was entered by Mary Ann Correa Scribe, acting as scribe for Micheal Bermudez MD. HPI-Fever - General Chief Complaint: SEPSIS ALERT - P Stated Complaint: AMS Time Seen by Provider: 03/06/19 14:09 Source: patient, EMS Allergies/Adverse Reactions: Patient Allergies Allergy/AdvReac Type Severity Reaction Status Date / Time metronidazole [From Flagyl] Allergy Unknown ITCHING Verified 08/16/17 22:16 Metronidazole HCl * Allergy Unknown ITCHING Verified 08/16/17 22:16 [From Flagyl] Home Medications: Home Medication List Medication Instructions Recorded Confirmed Last Taken Type Ferrous Sulfate [Ferrousul] 325 mg PO Q4-8H PRN 12/12/11 01/21/19 01/21/19 08:00 History Gabapentin 600 mg PO TID 06/11/15 01/21/19 01/21/19 08:00 History Glipizide 10 mg PO BID CC 06/11/15 01/21/19 01/21/19 08:00 History Insulin Glargine [Lantus] 30 unit SUBQ QHS #1 06/12/16 01/21/19 01/20/19 21:00 Rx Linagliptin [Tradjenta] 5 mg PO DAILY 03/12/17 01/22/19 01/21/19 08:00 History [place]-3 Fatty Acids/Fish Oil [Fish 1 each PO TID 03/12/17 10/25/18 01/21/19 08:00 History Oil 1,000 mg Capsule] SIMVAstatin [Zocor] 40 mg PO HS 03/12/17 01/21/19 01/20/19 21:00 History Cetirizine HCl 1 tab PO DAILY 08/16/17 01/21/19 01/21/19 08:00 History Carvedilol [Coreg] 3.125 mg PO BID #120 tab 07/10/18 01/21/19 01/21/19 08:00 Rx Ergocalciferol (Vitamin D2) 50,000 unit PO Q7D #12 cap 07/10/18 01/21/19 Unknown Rx [Vitamin D] Hydralazine [Apresoline] 10 mg PO TID #120 tab 07/10/18 01/21/19 01/21/19 08:00 Rx Aspirin EC 81 mg PO DAILY tab 01/28/19 Unknown Rx Cephalexin [Keflex] 500 mg PO Q6HR #20 cap 01/28/19 Unknown Rx - History of Present Illness-Fever Nature of Presenting Problem: Pt is a 58 yof who presents to the ED via ems after feeling dizzy/shakey at [facility]. Family states that the pt stopped anwering questions. Ems denies any loc. Pt family also states that her blood sugar was >500. Pt deemed mentally lethargic in ED but followed commands and breif answers to some questions. Fever Severity/Quality: reports: no fever Onset/Duration: reports: just prior to arrival Timing: reports: still present Severity: reports: moderate Context: reports: none Recent Illness?: reports: none Fever Therapy NODE JS DEVELOPER: Initiated none Cognitive Baseline: alert, oriented x3 Modifying Factors: improves with: nothing Similar Symptoms Previously?: Yes Recently seen or treated by another doctor?: Yes - Glascow Coma Score Best Eye Response ([place]): (4) open spontaneously Best Verbal Response ([place]): (5) oriented Best Motor Response ([place]): (6) obeys commands [place] Total: 15 Review of Systems - Adult - REVIEW OF SYSTEMS - ADULT Constitutional: reports: see HPI, fever, fatique Eyes: reports: no symptoms reported Ears, Nose, Mouth & Throat: reports: no symptoms reported Cardiovascular: reports: no symptoms reported Respiratory: reports: see HPI Gastrointestinal: reports: no symptoms reported Genitourinary: reports: no symptoms reported Musculoskeletal: reports: no symptoms reported Integumentary: reports: see HPI, skin sores/ulcer (chronic edema and open wound 7 x 3, 5 cm deep to Left Lower Leg.), other (chronic edema and open wound 7 x 3, 5 cm deep to Left Lower Leg.) Neurological: reports: no symptoms reported Psychiatric: reports: no symptoms reported Endocrine: reports: no symptoms reported Hematologic/Lymphatic: reports: no symptoms reported Allergic/Immunologic: reports: no symptoms reported All Other Systems: Reviewed and Negative Past History - Adult - PAST MEDICAL HISTORY-ADULT Review of Records: reports: Nursing Assessment Review, Medications Reviewed, Social history reviewed & non-contributory. Major Childhood Illnesses: reports: denies history Cardiovascular: reports: HTN, hyperlipidemia Respiratory: reports: sleep apnea Gastrointestinal: reports: denies history Obstetrical/Gynecological: reports: denies history Genitourinary: reports: denies history Musculoskeletal: reports: denies history Neurological: reports: denies history Endocrine/Immune: reports: anemia, Diabetes Diabetes Type: Type 2 Other Conditions: reports: MRSA, other (chronic edema and open wound 7 x 3, 5 cm deep to Left Lower Leg.) - PRIOR SURGERIES/PROCEDURES Surgical/Procedure History: reports: , orthopedic (extremity) (L lower leg), other - PRIOR HOSPITALIZATIONS Prior Hospitalizations: reports: for other non-related - IMMUNIZATION STATUS Childhood Immunizations: See Nurse Assessment Flu Vaccine: See Nurse Assessment - FAMILY HISTORY Family History: reviewed, not pertinent Physical Exam-General - PHYSICAL EXAM-ADULT Initial Vital Signs Reviewed: Yes - CONSTITUTIONAL General Appearance: alert, obese (morbid), lethargic (mentally, but answers questions) - EYES Eyes: PERRL/EOMI, pink conjunctivae - HEAD, EARS, NOSE, MOUTH & THROAT HENMT: normocephalic/atraumatic, moist mucous membranes - NECK Neck: non-tender, full range of motion, supple, normal inspection. negative: meningismus - RESPIRATORY Respiratory: chest non-tender, lungs clear, respiratory distress (44 per min), wheezing, other (mild tachypnea) - CARDIOVASCULAR Cardiovascular: no JVD, no murmur, tachycardia (mild) - GASTROINTESTINAL (ABDOMEN) Abdominal Exam: normal bowel sounds, non tender, soft - LYMPHATIC Lymphatic: no adenopathy - MUSCULOSKELETAL Back Exam: normal inspection, no CVA tenderness, no vertebral tenderness Extremity: swelling (chronic edema of left leg with chronic ulcer of lower medial left leg, 7x3cm side and 5cm deep, clean and good granulation tissue.) - SKIN Integumentary: warm/dry - NEUROLOGIC Neurologic: grossly normal - PSYCHIATRIC Psych/Mental Status: normal thought content, normal thought process, oriented x 3 Progress - PLAN OF CARE/RESULTS Progress/Plan/Lab Results: Vital Signs - 8 hr 03/06/19 13:43 03/06/19 14:00 03/06/19 16:00 Temperature 98 F Pulse Rate 110 H 103 H 101 H Respiratory Rate 44 H 36 H 24 Blood Pressure 158/112 142/76 133/108 O2 Sat by Pulse Oximetry 93 L 97 98 Laboratory Results - last 24 hr 03/06/19 03/06/19 03/06/19 13:45 14:03 14:03 WBC 18.95 H RBC 4.30 Hgb 11.3 L Hct 36.8 L MCV 85.6 MCH 26.3 L MCHC 30.7 L RDW Std Deviation 13.9 Plt Count 189 MPV 10.1 Immature Gran % (Auto) 0.2 Neut % (Auto) 89.0 H Lymph % (Auto) 5.3 L Cedar % (Auto) 4.7 Eos % (Auto) 0.6 Baso % (Auto) 0.2 Immature Gran # (Auto) 0.04 Neut # (Auto) 16.86 H Lymph # (Auto) 1.01 L Cedar # (Auto) 0.90 H Eos # (Auto) 0.11 Baso # (Auto) 0.03 Segmented Neutrophils 90 H Lymphocytes 7 L Monocytes 3 Hypochromia 2+ PT INR PTT (Actin FS) Specimen Type ARTERIAL Sample Site R RADIAL pH 7.42 pCO2 42 pO2 60 HCO3 26.6 H Base Excess 2.4 Oxyhemoglobin 91.1 L ABG O2 Sat (Calculated) 16.0 ABG O2 Saturation 95.0 ABG Carboxyhemoglobin 2.60 H ABG Methemoglobin 1.5 Claudio Test YES A-a O2 Difference 87.0 Total Hemoglobin 12.5 Lactate 1.10 Liter Flow 2.0 Blood Gas Modality CANNULA FiO2 % 28.0 Sodium Potassium Chloride Carbon Dioxide Anion Gap BUN Creatinine Estimated GFR/1.73 m2 BUN/Creatinine Ratio Glucose Calculated Osmolality Calcium Magnesium Total Bilirubin AST ALT Alkaline Phosphatase Creatine Kinase Troponin T Aji-D-Pgjicusrxdt Pept Total Protein Albumin Globulin Albumin/Globulin Ratio Plasma Lactate 1.0 Urine Source Urine Color Urine Turbidity Urine pH Ur Specific [place] Urine Protein Ur Glucose (Stick) Ur Ketones (Stick) Urine Blood Urine Nitrite Urine Bilirubin Urobilinogen Dipstick Urine Leukocytes Urine WBC (Auto) Urine RBC (Auto) U Epithel Cells (Auto) Urine Bacteria (Auto) 03/06/19 03/06/19 03/06/19 14:03 14:03 14:03 WBC RBC Hgb Hct MCV MCH MCHC RDW Std Deviation Plt Count MPV Immature Gran % (Auto) Neut % (Auto) Lymph % (Auto) Cedar % (Auto) Eos % (Auto) Baso % (Auto) Immature Gran # (Auto) Neut # (Auto) Lymph # (Auto) Cedar # (Auto) Eos # (Auto) Baso # (Auto) Segmented Neutrophils Lymphocytes Monocytes Hypochromia PT 14.6 INR 1.08 PTT (Actin FS) 29.7 Specimen Type Sample Site pH pCO2 pO2 HCO3 Base Excess Oxyhemoglobin ABG O2 Sat (Calculated) ABG O2 Saturation ABG Carboxyhemoglobin ABG Methemoglobin Claudio Test A-a O2 Difference Total Hemoglobin Lactate Liter Flow Blood Gas Modality FiO2 % Sodium 137 Potassium 4.3 Chloride 101 Carbon Dioxide 22 L Anion Gap 14 BUN 53 H Creatinine 2.1 H Estimated GFR/1.73 m2 24 BUN/Creatinine Ratio 25 Glucose 176 H Calculated Osmolality 293 Calcium 8.9 Magnesium 1.6 Total Bilirubin 0.70 AST 17 ALT 10 Alkaline Phosphatase 104 Creatine Kinase 61 Troponin T < 0.010 Gxh-E-Kjylhebzjau Pept Total Protein 8.8 H Albumin 4.0 Globulin 5.0 Albumin/Globulin Ratio 1.0 Plasma Lactate Urine Source Urine Color Urine Turbidity Urine pH Ur Specific [place] Urine Protein Ur Glucose (Stick) Ur Ketones (Stick) Urine Blood Urine Nitrite Urine Bilirubin Urobilinogen Dipstick Urine Leukocytes Urine WBC (Auto) Urine RBC (Auto) U Epithel Cells (Auto) Urine Bacteria (Auto) 03/06/19 03/06/19 14:03 14:47 WBC RBC Hgb Hct MCV MCH MCHC RDW Std Deviation Plt Count MPV Immature Gran % (Auto) Neut % (Auto) Lymph % (Auto) Cedar % (Auto) Eos % (Auto) Baso % (Auto) Immature Gran # (Auto) Neut # (Auto) Lymph # (Auto) Cedar # (Auto) Eos # (Auto) Baso # (Auto) Segmented Neutrophils Lymphocytes Monocytes Hypochromia PT INR PTT (Actin FS) Specimen Type Sample Site pH pCO2 pO2 HCO3 Base Excess Oxyhemoglobin ABG O2 Sat (Calculated) ABG O2 Saturation ABG Carboxyhemoglobin ABG Methemoglobin Claudio Test A-a O2 Difference Total Hemoglobin Lactate Liter Flow Blood Gas Modality FiO2 % Sodium Potassium Chloride Carbon Dioxide Anion Gap BUN Creatinine Estimated GFR/1.73 m2 BUN/Creatinine Ratio Glucose Calculated Osmolality Calcium Magnesium Total Bilirubin AST ALT Alkaline Phosphatase Creatine Kinase Troponin T Ter-M-Odumbfbdydb Pept 1814 H Total Protein Albumin Globulin Albumin/Globulin Ratio Plasma Lactate Urine Source CATH Urine Color YELLOW Urine Turbidity HAZY Urine pH 5.5 Ur Specific [place] 1.011 Urine Protein TRACE A Ur Glucose (Stick) NEGATIVE Ur Ketones (Stick) NEGATIVE Urine Blood TRACE A Urine Nitrite POSITIVE A Urine Bilirubin NEGATIVE Urobilinogen Dipstick NORMAL Urine Leukocytes LARGE A Urine WBC (Auto) TNTC A Urine RBC (Auto) <10 U Epithel Cells (Auto) <10 Urine Bacteria (Auto) 4+ Orders Category Date Time Status Cardiac Monitoring DIRECTED Care 03/06/19 13:53 Active Alvarez Cath Insertion ORDERED Care 03/06/19 14:29 Active IV Insertion ORDERED Care 03/06/19 13:53 Completed Notify MD of + Sepsis Screen NOW Care 03/06/19 13:53 Active Notify Physician As Ordered Care 03/06/19 13:53 Active CHEST-1 VIEW [RAD] Stat Exams 03/06/19 13:[address] HEAD W/O CONTRAST [CT] Stat Exams 03/06/19 14:[address] THORAX W/CONTRAST [CT] Stat Exams 03/06/19 14:31 Ordered ABG [RESP] Routine Lab 03/06/19 13:45 Completed BLOOD CULTURE [BLDCUL] Stat Lab 03/06/19 14:08 Ordered CBC WITH DIFF [HEME] Stat Lab 03/06/19 14:03 Completed CK PROFILE [SP CHEM] Stat Lab 03/06/19 14:03 Completed COMPREHENSIVE METABOLIC PANEL [CHEM] Stat Lab 03/06/19 14:03 Completed LACTATE, PLASMA [CHEM] Lab 03/06/19 14:03 Completed LACTATE, PLASMA [CHEM] Lab 03/06/19 17:00 Uncollected LACTATE, PLASMA [CHEM] Lab 03/06/19 20:00 Uncollected MAGNESIUM [CHEM] Stat Lab 03/06/19 14:03 Completed PRO B-NATRIURETIC PEPTIDE Stat Lab 03/06/19 14:03 Completed PROTIME WITH INR [COAG] Stat Lab 03/06/19 14:03 Completed PTT [COAG] Stat Lab 03/06/19 14:03 Completed TROPONIN T Stat Lab 03/06/19 14:03 Completed URINALYSIS W/POSS RFLX CULT [URINALYSIS] Stat Lab 03/06/19 14:47 Completed URINE CULTURE [RM] Routine Lab 03/06/19 15:04 Ordered Albuterol 2.5MG/Ipratrop 0.5MG [Duoneb (A & A)] Med 03/06/19 13:56 Discontinued 9 ml .ROUTE .STK-MED ONE CefTRIAXONE [Rocephin] 2 gm Med 03/06/19 15:53 Discontinued 0.9% Sodium Chloride Inj [Ns] 50 ml IV NOW Insulin Human Regular [Humulin R] Med 03/06/19 16:33 Discontinued 10 unit IV NOW ONE Potassium Chloride E.r. [Klor-Con] Med 03/06/19 16:33 Discontinued 40 meq PO NOW ONE Oxygen Device Stat Oth 03/06/19 13:53 Active Result Diagrams: 03/06/19 14:03 03/06/19 14:03 - REASSESSMENT Reassessment #1 Time Reassessed: 16:31 Status: improving (note UTI, leukocytosis but not elevated lactic acid. BS 176 but not DKA. Cr ususally sl better.) Reassessment #2 Time Reassessed: 17:15 Status: unchanged (unable to complete CT studies as ordered because too heavy for our machine.) - XRAY 1 XRAY Study: Chest Impression: Normal, See EMR Report - CONSULTS/PCP/HOSPITALIST Notification #1 *Consult/PCP/Hospitalist*: Dr. Jacobs, hospitalist Time Discussed: 16:00 Reason/Comments: Discuss Admission Consult Disposition: Admit (Dr. Jacobs accepted admission.) Departure - Departure Date of Disposition Decision: 03/06/19 Time of Disposition Decision: 17:27 DIAGNOSIS: Leg edema, left, Non-healing wound, Morbid obesity, Diabetic leg ulcer, Confusion UTI (urinary tract infection) Qualifiers: Urinary tract infection type: acute cystitis Hematuria presence: without hematuria Qualified Code(s): N30.00 - Acute cystitis without hematuria Diabetes Qualifiers: Diabetes mellitus type: type 2 Diabetes mellitus chcf insulin use: with airplane navigator use Leukocytosis Qualifiers: Leukocytosis type: unspecified Qualified Code(s): D72.829 - Elevated white blood cell count, unspecified Disposition: ADMITTED INPATIENT 09 Certified Medical Emergency: Emergent Condition: Stable Referrals and Follow-Ups: None,PCP [Primary Care Provider] - - Critical Care Note This patient required my direct & personal management of CC.: No Attestation - Physician/ JONY Attestation Patient care was provided by Advanced Practice Provider:: No The physician spent face to face time with patient:: Yes Advanced Practice Provider documentation review:: Supervising physician onsite and consulted in the evaluation and care of this patient. The physician did have a face to face encounter with the patient. This chart was documented by the indicated scribe, (Mary Ann Correa, Davon) and accurately reflects the services I performed and decisions made by me, Micheal Bermudez MD, as attested by the provider's signature.
[2019-03-06] MEDS ORDERED: ZOFRAN IV PRN ×2 (18:15→18:20)
[2019-03-06] MEDS ORDERED: TYLENOL PO PRN ×2 (18:15→18:20)
[2019-03-06] MEDS: DUONEB (A & A) INH SCH ×2 (19:45→23:22)
--- NOTE | 2019-03-06 20:21 | Diag Imaging Result Doc PS360 ---
EXAM: CT HEAD W/O CONTRAST 03/06/2019 HISTORY: ALTERED MENTAL STATUS TECHNIQUE: This exam was performed using automated exposure control, adjustment of mA or kV according to patient size, and/or use of iterative reconstruction technique. COMMENT: There are no previous studies available for comparison. There is no evidence of mass effect, bleed, or abnormal extra-axial fluid collection. There is hyperostosis of the calvarium. There is no evidence of fracture. The paranasal sinuses are clear. IMPRESSION: No evidence of acute intracranial disease. Electronically signed by Javier Munoz 03/06/2019 8:18 PM
--- NOTE | 2019-03-06 20:23 | Diag Imaging Result Doc PS360 ---
EXAM: CT THORAX W/O CONTRAST 03/06/2019 HISTORY: [place]. RESP. DISTRESS TECHNIQUE: This exam was performed using automated exposure control, adjustment of mA or kV according to patient size, and/or use of iterative reconstruction technique. COMMENT: There are no previous studies. There is a cyst or nodule in the left thyroid lobe inferiorly. There are calcifications present in the left anterior descending coronary artery. There is no evidence of pleural effusion. There is some groundglass opacity in the parahilar regions which may indicate mild pulmonary edema. The heart size is enlarged. The regional skeleton is intact. IMPRESSION: Mild pulmonary edema. Electronically signed by Javier Munoz 03/06/2019 8:21 PM
[2019-03-06] MEDS: HUMALOG SUBQ SCH (22:15)
[2019-03-06] MEDS: ROCEPHIN 1 GM in NS 50 ML IV SCH (23:02)
--- NOTE | 2019-03-07 00:10 | HISTORY AND PHYSICAL ---
CHIEF COMPLAINT: Acute altered mental status. HISTORY OF PRESENT ILLNESS: The patient is a 58-year-old female who noted that she had been feeling well prior to going to [facility]. However, at [facility] she started feeling dizzy, lightheaded, shaky. Patient's family noted that she stopped answering questions while she was in [facility] and therefore they brought her to the hospital. They deny any knowledge of falling, no loss of consciousness. Do note that her blood sugar was high while she was at [facility]. ALLERGIES: Flagyl causing itching. MEDICATIONS: Iron, gabapentin, glipizide 10 b.i.d., Lantus 30 at bedtime, Tradjenta 5 daily, omega-3 fatty, simvastatin, Zyrtec, Coreg 3.125 twice daily. REVIEW OF SYSTEMS: As noted above. Difficult as Ms. Montanez is unable to answer most questions although she does answer some questions. The family deny any knowledge of fevers, chills, or any recent illness. Notes that yesterday she was fine and in fact this morning prior to [facility] she was fine. They are unsure how often or if she checks her blood sugars at home. Deny any true sick contacts. Denies any knowledge of GI/ issues. Otherwise, review of systems essentially unobtainable from Ms. Montaenz. She does have a chronic open wound on her left lower leg that is bandaged. PAST MEDICAL HISTORY: Morbid obesity, hypertension, hyperlipidemia, history of anemia, history of chronic edema and edematous changes in her bilateral lower extremities with a wound on her left lower extremity. FAMILY HISTORY: Noncontributory. SOCIAL HISTORY: Patient does not smoke or drink. She lives at home. PHYSICAL EXAMINATION: VITAL SIGNS: Reviewed. Temperature 98 degrees, pulse 110, respiratory 44, BP 158/112, saturation 93% on room air. GENERAL: Patient is morbidly obese. She is lying in the bed with the head elevated to approximately 30 degrees. She does answer some questions but then is unable to answer others, this seems to be intermittent. HEENT: Normocephalic, atraumatic. NATI. NECK: Supple. CARDIOVASCULAR: Regular rate. CHEST: Clear but distant. ABDOMEN: Soft, morbidly obese. EXTREMITIES: Moves all extremities. She is noted to have chronic edematous changes in bilateral lower extremities, left lower extremity having a wound on the medial side 7 x 3 cm and 5 cm deep, currently bandaged. ASSESSMENT: 1. Acute delirium of undetermined origin. 2. Leukocytosis with a white count of 18. 3. Acute on chronic renal failure. 4. Diabetes with poor control, although currently her blood sugar is 176 in the ER. 5. Sepsis. 6. Chronic edema. 7. Acute urinary tract infection. 8. Metabolic encephalopathy secondary to urinary tract infection. PLAN: We are going to admit patient to the hospital. IV fluids, antibiotics. Continue home medications, sliding scale insulin and we will follow. cc: Isma Wheeler MD
[2019-03-07] MEDS: DUONEB (A & A) INH SCH ×3 (03:33→16:47)
[2019-03-07 05:53] LABS: HEMOGLOBIN 10.2 g/dL (12.0-16.0); MCH 25.7 PG (27-31); MCV 85.6 FL (81-99); MPV 10.6 FL (7.4-10.4); RBC 3.97 XMIL (4.2-5.4); WBC 29.95 X1000 (4.8-10.8)
[2019-03-07] MEDS: HUMALOG SUBQ SCH (06:36)
[2019-03-07 06:54] LABS: ALBUMIN 3.3 g/dL (3.5-5.0); CALCIUM 8.4 mg/dL (8.8-10.2); CREATININE 2.5 mg/dL (0.5-0.9); MAGNESIUM 1.6 mg/dL (1.5-2.7); TOTAL BILIRUBIN 0.6 mg/dL (0.20-1.00); TOTAL PROTEIN 8.1 g/dL (6.3-8.3)
[2019-03-07 07:05] LABS: POTASSIUM 4.7 mmol/L (3.5-5.1)
[2019-03-07] MEDS ORDERED: TYLENOL PO PRN (07:07)
[2019-03-07] MEDS ORDERED: ZOFRAN IV PRN (07:07)
[2019-03-07] MEDS ORDERED: VANCOMYCIN IV PER PHARMACY MISC SCH (07:15)
[2019-03-07] MEDS: GLUCOTROL PO SCH ×2 (08:54→16:42)
[2019-03-07] MEDS: MACROBID PO SCH ×3 (08:54→21:17)
[2019-03-07] MEDS: ARICEPT PO SCH ×3 (08:54→21:17)
[2019-03-07] MEDS: APRESOLINE PO SCH ×4 (08:54→21:17)
[2019-03-07] MEDS: ASPIRIN EC PO SCH (08:54)
[2019-03-07] MEDS: NAMENDA PO SCH (08:54)
[2019-03-07] MEDS: SINGULAIR PO SCH (08:54)
[2019-03-07] MEDS: PROZAC PO SCH (08:54)
[2019-03-07] MEDS: ABILIFY PO SCH (08:54)
[2019-03-07] MEDS: HYDROCHLOROTHIAZIDE PO SCH (08:54)
[2019-03-07] MEDS: COREG PO SCH ×3 (08:55→21:18)
[2019-03-07] MEDS: NEURONTIN PO SCH ×4 (08:55→21:17)
[2019-03-07] MEDS ORDERED: VITAMIN D PO SCH (09:00)
[2019-03-07] MEDS ORDERED: VANCOMYCIN 2,200 MG in NS 500 ML IV ONE (09:00)
[2019-03-07] MEDS: HUMALOG (PARKWAY) SUBQ SCH ×3 (11:45→21:18)
[2019-03-07] MEDS: DITROPAN XL PO SCH (11:45)
[2019-03-07] MEDS ORDERED: DUONEB (A & A) INH PRN (11:50)
[2019-03-07] MEDS: ZOCOR PO SCH ×2 (19:47→21:17)
[2019-03-07] MEDS: LANTUS INSULIN SUBQ SCH (21:18)
[2019-03-07] MEDS: ROCEPHIN 1 GM in NS 50 ML IV SCH (22:12)
[2019-03-08 05:19] LABS: HEMATOCRIT 33.6 % (37.0-47.0); HEMOGLOBIN 9.8 g/dL (12.0-16.0); MCH 25.7 PG (27-31); MCHC 29.2 g/dL (33-37); MPV 10.1 FL (7.4-10.4); RBC 3.82 XMIL (4.2-5.4); RDW 14.4 % (11.5-14.5); WBC 14.73 X1000 (4.8-10.8)
[2019-03-08 05:37] LABS: ALBUMIN 3.1 g/dL (3.5-5.0); CALCIUM 8.6 mg/dL (8.8-10.2); CREATININE 2.3 mg/dL (0.5-0.9); MAGNESIUM 1.9 mg/dL (1.5-2.7); POTASSIUM 4.4 mmol/L (3.5-5.1); TOTAL BILIRUBIN 0.3 mg/dL (0.20-1.00)
[2019-03-08] MEDS: HUMALOG (PARKWAY) SUBQ SCH ×4 (06:33→20:58)
--- NOTE | 2019-03-08 07:25 | PROGRESS NOTE ---
DATE: 03/07/2019 SUBJECTIVE: Patient has no new complaints. No family currently is available. The patient will respond to commands occasionally but currently is not. PHYSICAL EXAMINATION: Vital signs: Temperature 99 degrees, pulse 75, respiratory rate 18, blood pressure 131/55. General: Patient is awake, alert. Currently she is in no respiratory distress. HEENT: Normocephalic. Neck: Supple. Cardiovascular: Regular rate. Chest: Clear. Abdomen: Soft, obese, nondistended. Extremities: Moves all extremities. ASSESSMENT: 1. Acute delirium. 2. Sepsis. 3. Leukocytosis. 4. Acute on chronic renal failure. 5. Acute urinary tract infection with gram-negative rods. PLAN: We are going to continue the patient in the hospital. [place] [id number], we are going to recheck. Creatinine is elevated at 2.5. Continue IV fluids. Continue antibiotics until culture and sensitivity can be obtained. cc: Isma Wheeler MD
[2019-03-08] MEDS: PROZAC PO SCH (09:34)
[2019-03-08] MEDS: APRESOLINE PO SCH ×3 (09:34→21:00)
[2019-03-08] MEDS: DITROPAN XL PO SCH (09:34)
[2019-03-08] MEDS: ABILIFY PO SCH (09:34)
[2019-03-08] MEDS: SINGULAIR PO SCH (09:34)
[2019-03-08] MEDS: NEURONTIN PO SCH ×3 (09:34→21:00)
[2019-03-08] MEDS: NAMENDA PO SCH (09:34)
[2019-03-08] MEDS: ASPIRIN EC PO SCH (09:34)
[2019-03-08] MEDS: ARICEPT PO SCH ×2 (09:34→21:01)
[2019-03-08] MEDS: HYDROCHLOROTHIAZIDE PO SCH (09:34)
[2019-03-08] MEDS: COREG PO SCH ×2 (09:34→21:01)
[2019-03-08] MEDS: MACROBID PO SCH ×2 (09:34→21:00)
[2019-03-08] MEDS: GLUCOTROL PO SCH ×2 (09:35→17:00)
--- NOTE | 2019-03-08 15:34 | PROGRESS NOTE ---
DATE: 03/08/2019 SUBJECTIVE: The patient reports feeling fine. Denies any fever or chills. OBJECTIVE: Vital Signs: Temperature 98.2 degrees, heart rate 71, respiratory rate 20, blood pressure 134/53, O2 saturation 100% 2 L nasal cannula. General Examination: This is a chronically ill appearing 58-year-old, female lying in bed, in no acute distress. HEENT: Head is normocephalic, atraumatic. Neck: No JVD noted. No carotid bruit. Cardiovascular: S1, S2 heard. No murmurs, gallops, or rubs. Regular rate and rhythm. Respiratory: Clear bilaterally to auscultation. No work of breathing or using accessory muscles. Abdomen: Soft, nontender to palpation. Bowel sounds present. No organomegaly. Extremities: No clubbing, cyanosis, or edema. Peripheral pulses present in both legs. Neurological: The patient is awake. Does follow basic commands. LABORATORY DATA: White cell count 14.73, hemoglobin 9.9, hematocrit 33.6 platelets 154,000. Creatinine of 2.3. Glucose 136. ASSESSMENT/PLAN: 1. Urinary tract infection secondary to Escherichia coli. We will continue with current antibiotics, in this case, ceftriaxone. We will continue with intravenous fluids. 2. Sepsis secondary to urinary tract infection. I think that condition is getting better. We will continue to monitor. The patient is not tachycardic. 3. Acute delirium. The patient is more oriented but definitely a little bit confused. We will continue to monitor. 4. Acute on chronic renal failure. Actually we have checked the renal function for this patient over the last few years and historically she is at her baseline around 1.9. Today creatinine is 2.3, which is slightly elevated from baseline. We will continue to monitor. 5. Disposition. We will continue with intravenous fluids and if labs are better tomorrow, we will we will let her go. cc: Adrián Mendez MD
[2019-03-08] MEDS: LANTUS INSULIN SUBQ SCH (21:00)
[2019-03-08] MEDS: ZOCOR PO SCH (21:00)
[2019-03-08] MEDS ORDERED: VANCOMYCIN 2,500 MG in NS 500 ML IV SCH (21:00)
[2019-03-09] MEDS: ROCEPHIN 1 GM in NS 50 ML IV SCH ×2 (00:45→21:02)
[2019-03-09 06:35] LABS: ALBUMIN 3.2 g/dL (3.5-5.0); CALCIUM 8.8 mg/dL (8.8-10.2); CREATININE 1.8 mg/dL (0.5-0.9); PHOSPHORUS 3.7 mg/dL (2.7-4.5); POTASSIUM 4.4 mmol/L (3.5-5.1)
[2019-03-09] MEDS: HUMALOG (PARKWAY) SUBQ SCH ×4 (07:37→20:59)
[2019-03-09 08:53] LABS: BASO# 0.03 X1000 (0.0-0.2); BASO% 0.3 % (0.0-0.8); EOS# 0.21 X1000 (0.0-0.7); EOS% 2.1 % (0.0-10.0); HEMATOCRIT 32.9 % (37.0-47.0); HEMOGLOBIN 9.4 g/dL (12.0-16.0); IMM GRAN# 0.03 X1000 (0.0-0.04); IMM GRAN% 0.3 % (0.0-0.5); LYMPH# 1.44 X1000 (1.2-3.4); LYMPH% 14.7 % (20.5-51.1); MCH 25.2 PG (27-31); MCHC 28.6 g/dL (33-37); MCV 88.2 FL (81-99); MONO# 1.02 X1000 (0.11-0.59); MONO% 10.4 % (1.7-9.3); MPV 10.7 FL (7.4-10.4); NEUT# 7.04 X1000 (1.4-6.5); NEUT% 72.2 % (42.2-75.2); PLT 159 X1000 (130-400); RBC 3.73 XMIL (4.2-5.4); RDW 13.9 % (11.5-14.5); WBC 9.77 X1000 (4.8-10.8)
[2019-03-09] MEDS: DITROPAN XL PO SCH (08:54)
[2019-03-09] MEDS: ABILIFY PO SCH (08:54)
[2019-03-09] MEDS: GLUCOTROL PO SCH ×2 (08:54→17:55)
[2019-03-09] MEDS: ASPIRIN EC PO SCH (08:55)
[2019-03-09] MEDS: SINGULAIR PO SCH (08:55)
[2019-03-09] MEDS: ARICEPT PO SCH ×2 (08:55→20:43)
[2019-03-09] MEDS: COREG PO SCH ×2 (08:55→20:43)
[2019-03-09] MEDS: APRESOLINE PO SCH ×3 (08:55→20:43)
[2019-03-09] MEDS: HYDROCHLOROTHIAZIDE PO SCH (08:55)
[2019-03-09] MEDS: NEURONTIN PO SCH ×3 (08:55→20:43)
[2019-03-09] MEDS: PROZAC PO SCH (08:55)
[2019-03-09] MEDS: NAMENDA PO SCH (08:55)
[2019-03-09] MEDS: MACROBID PO SCH ×2 (08:55→20:42)
--- NOTE | 2019-03-09 11:28 | PROGRESS NOTE ---
DATE: 03/09/2019 SUBJECTIVE: The patient reports feeling fine. She asked if we can advance her diet. Denies any fever or chills. She has been in the bed all the time and having some back pain. OBJECTIVE: Vital Signs: Temperature 98.1 degrees, heart rate 66, respiratory rate 20, blood pressure 125/67. O2 saturation 97% 2 L nasal cannula. General Examination: This is a 58-year- old female lying in bed, in no acute distress. Cardiovascular: S1, S2 heard. No murmurs, gallops, or rubs. Regular rate and rhythm. Respiratory: Clear bilaterally to auscultation. No work of breathing or using accessory muscles. Abdomen: Soft, nontender to palpation. Bowel sounds present. No organomegaly. Extremities: No clubbing, cyanosis, or edema. Peripheral pulses present in both legs. Neurological: Patient is alert and oriented x3. Moves 4 extremities. LABORATORY DATA: White cell count 9.77, hemoglobin 9.4, hematocrit 32.9, platelets 159,000, with renal function 1.8. ASSESSMENT AND PLAN: 1. Urinary tract infection secondary to Escherichia coli. We will continue with ceftriaxone. White cell count is back to normal. We will continue with the same management. 2. Sepsis secondary to urinary tract infection. That condition is resolved. She is not septic anymore. Non-tachycardic. 3. Acute delirium resolved. 4. Acute on chronic renal failure. Renal function continues to improve. Now, today the creatinine currently is 1.8, which is her historical baseline for the last couple of days. We will continue to monitor. 5. Physical deconditioning. Patient is complaining of back pain. She has not been able to get up from the bed so we will consult physical therapy today. 6. Disposition. At this point, we will we will advance her diet to regular diet. We will see how she does with physical therapy and if she is feeling okay, we will discharge her tomorrow. cc: Adrián Mendez MD
[2019-03-09] MEDS: LANTUS INSULIN SUBQ SCH (20:42)
[2019-03-09] MEDS: ZOCOR PO SCH (20:43)
[2019-03-10 06:16] LABS: BASO# 0.03 X1000 (0.0-0.2); BASO% 0.4 % (0.0-0.8); EOS# 0.11 X1000 (0.0-0.7); EOS% 1.4 % (0.0-10.0); HEMATOCRIT 33.5 % (37.0-47.0); HEMOGLOBIN 9.7 g/dL (12.0-16.0); IMM GRAN# 0.01 X1000 (0.0-0.04); IMM GRAN% 0.1 % (0.0-0.5); LYMPH% 18.1 % (20.5-51.1); MCH 25.9 PG (27-31); MCV 89.3 FL (81-99); MONO# 0.76 X1000 (0.11-0.59); MONO% 9.8 % (1.7-9.3); MPV 10.5 FL (7.4-10.4); NEUT# 5.44 X1000 (1.4-6.5); NEUT% 70.2 % (42.2-75.2); PLT 155 X1000 (130-400); RBC 3.75 XMIL (4.2-5.4); WBC 7.75 X1000 (4.8-10.8)
[2019-03-10] MEDS: HUMALOG (PARKWAY) SUBQ SCH ×2 (06:19→12:23)
[2019-03-10 06:35] LABS: ALBUMIN 3.2 g/dL (3.5-5.0); CALCIUM 8.8 mg/dL (8.8-10.2); CREATININE 1.7 mg/dL (0.5-0.9); PHOSPHORUS 3.7 mg/dL (2.7-4.5); POTASSIUM 4.9 mmol/L (3.5-5.1)
[2019-03-10 07:40] VITALS: BP 138/65
[2019-03-10] MEDS: MACROBID PO SCH (08:17)
[2019-03-10] MEDS: APRESOLINE PO SCH (08:17)
[2019-03-10] MEDS: ASPIRIN EC PO SCH (08:17)
[2019-03-10] MEDS: PROZAC PO SCH (08:17)
[2019-03-10] MEDS: ARICEPT PO SCH (08:17)
[2019-03-10] MEDS: ABILIFY PO SCH (08:17)
[2019-03-10] MEDS: NEURONTIN PO SCH (08:17)
[2019-03-10] MEDS: DITROPAN XL PO SCH (08:17)
[2019-03-10] MEDS: NAMENDA PO SCH (08:17)
[2019-03-10] MEDS: GLUCOTROL PO SCH (08:17)
[2019-03-10] MEDS: SINGULAIR PO SCH (08:17)
[2019-03-10] MEDS: COREG PO SCH (08:17)
[2019-03-10] MEDS: HYDROCHLOROTHIAZIDE PO SCH (08:17)
--- NOTE | 2019-03-11 08:20 | DISCHARGE SUMMARY ---
ADMISSION DATE: 03/06/2019 DISCHARGE DATE: 03/10/2019 ADMISSION DIAGNOSES: 1. Acute delirium of undetermined origin. 2. Leukocytosis with white blood cell count of 18. 3. Acute on chronic kidney injury. 4. Diabetes mellitus type 2, uncontrolled. 5. Sepsis. 6. Chronic edema. 7. Acute urinary tract infection. 8. Metabolic encephalopathy secondary to urinary tract infection. DISCHARGE DIAGNOSES: 1. Urinary tract infection secondary to Escherichia coli which is ESBL negative, resistant to ampicillin, Levaquin, and Bactrim. 2. Sepsis secondary to urinary tract infection, resolved. 3. Acute delirium, resolved. 4. Acute on chronic kidney disease stage 3, improved. 5. Physical deconditioning. CONSULTATIONS: Social management, Social Service and Wound Care for chronic open wound of the left lower extremity. HOSPITAL COURSE: Ms. Judy Montanez is a 58-year-old female presented to the emergency department at [facility] with acute altered mental status. She was at [facility], started feeling dizzy, lightheaded, shaky, stopped answering questions for the family and then they brought her here. There is no knowledge of her falling and her blood glucose level was high when she got here. Urinalysis reveals she ended up having a urinary tract infection. It grew out ESBL positive. She was given antibiotics, Rocephin while she was here and now she is stable for discharge home. Her confusion improved. Sepsis improved as well. DISCHARGE VITAL SIGNS: Temperature 98.8 degrees, heart rate 61, respiratory rate 20, blood pressure 138/65, O2 saturation 98% on room air. DISCHARGE LAB DATA: White blood cells 7000, hemoglobin 9, hematocrit 33, platelet count 155,000. Sodium 139, potassium 4.9, BUN 46, creatinine 1.7, glucose 125, calcium 8.8, phosphorus 3.7, albumin is 3.2. Micro urine has E. coli in it. The blood cultures were negative. The E. coli was resistant to ampicillin, levofloxacin and Bactrim and it is ESBL negative. PERTINENT IMAGING: Chest x-ray no acute disease. Head CT no acute disease. Chest CT mild pulmonary edema. Telemetry strips showed sinus rhythm. DISCHARGE MEDICATIONS: 1. Abilify 5 mg p.o. daily. 2. Hydralazine 10 mg p.o. t.i.d. 3. Aricept 10 mg p.o. twice daily. 4. Calcium carbonate citrate vitamin D3 1 tablet p.o. twice daily. 5. Vitamin B12, 1000 mcg injection every 30 days, once a month. 6. Neurontin 600 mg p.o. t.i.d. 7. Glipizide 10 mg p.o. twice daily. 8. Hydrochlorothiazide 25 mg p.o. daily. 9. [place] 1 tablet p.o. t.i.d. p.r.n. 10. Namenda 10 mg p.o. daily. 11. Oxybutynin chloride 30 mg p.o. daily. 12. Prozac 20 mg p.o. daily. 13. Singulair 10 mg p.o. daily. 14. Vitamin D3, 88136 units p.o. weekly on Thursday. 15. Simvastatin 40 mg p.o. nightly. 16. Lantus 30 units subcutaneous daily. 17. Aspirin enteric-coated aspirin is 81 mg p.o. daily. 18. Cefuroxime 500 mg p.o. twice daily for 7 days. 19. Coreg 3.125 mg p.o. twice daily. DISCHARGE DIET: Diabetic heart healthy. DISCHARGE ACTIVITY: As tolerated. DISCHARGE PHYSICIAN FOLLOW-UP: Primary care provider. DISCHARGE INSTRUCTIONS: If your condition changes, contact physician and/or return to the emergency department. Changes may include, but not limited to shortness of breath, increased fatigue, excessive bleeding, unexplained weight loss or gain, unmanageable pain, signs or symptoms of infection. DISCHARGE DISPOSITION: Home. Dictated by MASON Miller for Adrián Mendez MD Addendum: Patient seen and examined by myself. Agree with MASON note. It reflects my assessment and plan. Patient is being discharged in stable condition. Will be seen by PCP in a week. cc: MASON Miller MD [facility]
== END 2019-03-10 12:50 | disposition home health service (06) | DRG 871 ==
LOC: P.ED 13:51 → P.MEDSURG 18:09 → SUATTDRO 18:09
PROVIDERS: ATTEND Internal Medicine